=== PATIENT | female | born 1970 | race Caucasian/White ===

== ENCOUNTER → 2017-03-22 | Outpatient (CLI) | payer OTHER ==
[~2017-03-22] MED LIST: CATHETER FLUSH 10 ML SYR IV PRN; CIPR-225 PO; CIPR500T4 PO; CPR500T PO; DOCU-143 PO; EPIN0.3P2 IM; GLIM4TAB PO; HYDR-3812 PO; HYDR-757 PO; IBUP-30 PO; IOHEXOL 350 MG/ML 100 ML (OMNIPAQUE 350) VIAL IV ONE; LEVO500T80 PO; METF-380 PO; METR500T PO; NS 100 ML (IVPB) BAG IV ONE; tylenol #3 PO
--- NOTE | 2017-03-22 15:15 | Diagnostic Imaging Report ---
PROCEDURE: CT chest, abdomen, and pelvis with contrast. TECHNIQUE: Multiple contiguous axial images were obtained through the chest, abdomen, and pelvis after the administration of intravenous contrast. INDICATION: Urethral discharge. 100 mL of Omnipaque [address] CHEST: There is a calcified thyroid nodule measuring 1.1 cm in the lower aspect of the left thyroid lobe. This can be further evaluated with thyroid ultrasound. The lungs demonstrate no significant consolidation, mass or suspicious nodule. From there is no mediastinal mass. No significantly enlarged lymph nodes in the mediastinum, hilar or axilla seen. The heart size is normal. No pericardial or pleural effusion. The osseous structures appear grossly unremarkable. CT ABDOMEN AND PELVIS: The liver, the spleen, the pancreas and adrenal glands appear unremarkable. There is air density bedside the left adrenal gland appears to relate to a small gastric diverticulum. Cholecystectomy clips are seen. The kidneys have symmetric enhancement and contrast excretion. There is no hydronephrosis. The urinary bladder demonstrates luminal air. There is a suggested tract communication between the distal aspect of the sigmoid colon and the dome of the urinary bladder best seen on coronal image #36. There is no contrast filling this communication however. These findings are suggestive of a colovesical fistula. There is still prominent thickening in the sigmoid colon with surrounding fatty stranding which may relate to active mild diverticulitis or could be sequela of prior bouts of diverticulitis. No significant free fluid or abscess is seen at this time however. The uterus, adnexa and vagina appear grossly unremarkable. The abdominal aorta is normal in size. Tiny fat-containing umbilical hernia is seen. However, no paraaortic significantly enlarged lymph node is seen. The osseous structures demonstrate mild degenerative changes in the SI joints with vacuum phenomenon. IMPRESSION: CT CHEST: 1. There is a 1.1 cm inferior left thyroid lobe calcified nodule. Ultrasound evaluation is suggested. CT PELVIS: 1. Findings are suggestive of a colovesicular fistula communicating between the distal sigmoid colon and the dome of the urinary bladder. 2. There is thickening in the sigmoid colon and surrounding mild fatty stranding. This could be sequelae of prior diverticulitis or relating to current mild diverticulitis. Correlate clinically. Dictated by: Dictated on workstation # [id number]
== END ==
LOC: RAD 13:19
PROVIDERS: ATTEND Nurse Practitioner Community Health
DX: E04.1 Nontoxic single thyroid nodule (principal); K63.9 Disease of intestine, unspecified
CPT/HCPCS: 71260; 74177

== ENCOUNTER → 2017-04-02 | Outpatient (CLI) | payer OTHER ==
[~2017-04-02] MED LIST changes: -CATHETER FLUSH 10 ML SYR IV PRN; -IOHEXOL 350 MG/ML 100 ML (OMNIPAQUE 350) VIAL IV ONE; -NS 100 ML (IVPB) BAG IV ONE
--- NOTE | 2017-04-02 16:43 | Diagnostic Imaging Report ---
PROCEDURE: US Thyroid. TECHNIQUE: Multiple real-time grayscale images were obtained of the thyroid in various projections. INDICATION: Thyroid nodule seen on CT. FINDINGS: The right thyroid lobe is 4.5 x 2 x 1.7 cm. The left lobe is 5.1 x 2.3 x 1.9 cm. In the inferior aspect of the left thyroid lobe there are 2 nodules one measuring 1.7 x 1.8 x 1.4 cm with associated hypoechoic rim and hyperechoic internal echotexture. No definite internal vascularity. More inferior to it, there is a 1.5 x 2.4 x 1.5 cm periphery calcified lesion with shadowing in its internal aspect with difficulty assessing its internal characteristics. IMPRESSION: There are 2 nodules in the left thyroid lobe inferiorly, one demonstrates peripheral calcifications and is larger measuring up to 2.4 cm in size. Ultrasound-guided biopsy is suggested. Report faxed to Dr. Mcdonald at 4:45 p.m. 04/02/2017/cb Dictated by: Dictated on workstation # [id number]
== END ==
LOC: RAD 14:23
PROVIDERS: ATTEND Surgery
DX: E04.9 Nontoxic goiter, unspecified (principal)
CPT/HCPCS: 76536

== ENCOUNTER 2017-04-03 05:38 | Outpatient (CLI) | payer OTHER ==
[~2017-04-03] VITALS: Ht 160 cm; Wt 113.4 kg
== END 2017-04-03 13:08 ==
LOC: PREOP 05:38
PROVIDERS: ATTEND Surgery
DX: Z01.818 Encounter for other preprocedural examination (principal); K60.4 Rectal fistula

== ENCOUNTER → 2017-04-05 | Outpatient (CLI) | payer OTHER ==
[~2017-04-05] VITALS: Ht 160 cm; Wt 113.4 kg
[~2017-04-05] MED LIST changes: +LIDOCAINE 1% INJ 20 ML (XYLOCAINE) VIAL INJ ONE
[2017-04-05 13:30] VITALS: BP 137/80
[2017-04-05 13:53] VITALS: BP 134/79
--- NOTE | 2017-04-05 17:22 | Diagnostic Imaging Report ---
EXAMINATION: US-guided core biopsy-thyroid. INDICATION: Left thyroid nodules. Current history and physical and other medical records are reviewed prior to the procedure. CONSENT: Informed consent was obtained from the patient. The risks, benefits, potential complications and alternatives were reviewed and all questions answered to the patient's satisfaction. The patient's vital signs, cardiac rhythm, and pulse oximetry with observed throughout the procedure by qualified nursing personnel. Sedation/medications: none. FINDINGS: Inferior left thyroid nodules one is peripherally calcified. PROCEDURE: After maximal sterile barrier technique preparation and draping, 1% lidocaine was utilized for local anesthesia. With the patient in supine position, and via anterior approach, a 19-gauge guide needle is introduced into the inferior left thyroid nodules under live ultrasound guidance. After confirming adequate positioning with saved ultrasound images, multiple 20 gauge core biopsy specimens were obtained. The patient tolerated the procedure well with no immediate complications. IMPRESSION: Successful US-guided core biopsy of inferior left thyroid nodule. Dictated by: Dictated on workstation # [id number]
== END ==
LOC: RAD 13:16
PROVIDERS: ATTEND Surgery
DX: E04.9 Nontoxic goiter, unspecified (principal)
CPT/HCPCS: 76942

== ENCOUNTER 2017-04-09 11:41 | Day surgery (SDC) | payer OTHER ==
[~2017-04-09] VITALS: Ht 160 cm; Wt 113.4 kg
[~2017-04-09 11:41] MED LIST changes: -LIDOCAINE 1% INJ 20 ML (XYLOCAINE) VIAL INJ ONE
--- NOTE | 2017-04-09 11:59 | Conscious Sedation/ASA ---
Conscious Sedation Pre-Proced Time Reviewed: 11:58 ASA Class: 2 Airway Mallampati Classification: ([place] appropriate class) I. II. III, IV Lungs Heart ASA score ASA 1: a normal healthy patient ASA 2: a patient with a mild systemic disease (mid diabetes, controlled hypertension, obesity ASA 3: a patient with a severe systemic disease that limits activity (angina , COPD, prior Myocardial infarction) ASA 4: a patient with an incapacitating disease that is a constant threat to life (CHF, renal failure) ASA 5: a moribund patient not expected to survive 24 hrs. (ruptured aneurysm) ASA 6: a declared brain patient whose organs are being harvested. For emergent operations, add the letter E after the classification Grade 1 Sedation Plan: Discussed options with patient/fam Note The patient is an appropriate candidate to undergo the planned procedure, sedation, and anesthesia. The patient immediately re-assessed prior to indication. VIRI FERNANDEZ MD Apr 09, 2017 11:59 am
[2017-04-09] MEDS ORDERED: NS IV 500 ML 500 ML IV PRN (12:00)
[2017-04-09 12:02] VITALS: BP 147/87
--- OUTSIDE RECORDS SUMMARY | 2017-04-09 12:23 | XMS REPORT ---
Author Author JARRELL MEI [facility] Address [address] [place] [address] Care Team Providers Care Sales Process Manager Name Role Phone JARRELL MEI Unavailable PROBLEMS Type Condition ICD9-CM Code [id number] Code Onset Dates Condition Status SNOMED Code Assessment Cough R05 Mar, Active 76217519 Problem Hypertension 401.9 Active 97714173 Problem Calculus of gallbladder with biliary obstruction but without cholecystitis 574.21 Active 20268012 Assessment Laryngitis J04.0 Mar, Active 99352926 Problem Routine gynecological examination Z01.419 Active 084066381 Problem Screening breast examination Z12.39 Active 288391774 Problem 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 Active 48128302 Problem 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 Active 334318163 Problem Urinary tract infection symptoms R39.9 Active 84907183 Problem Acute cystitis with hematuria N30.01 Active 44426222 ALLERGIES Substance Reaction Event Type Date Status wasp anaphylaxis Non Drug Allergy Mar, Active SOCIAL HISTORY No smoking Hx information available PLAN OF CARE VITAL SIGNS Height 64 in 2016-04-10 Weight 245.5 lbs 2016-04-10 Heart Rate 84 bpm 2016-04-10 Respiratory Rate 20 2016-04-10 BMI 42.14 kg/m2 2016-04-10 Blood pressure systolic 132 mmHg 2016-04-10 Blood pressure diastolic 80 mmHg 2016-04-10 MEDICATIONS Medication Instructions Dosage Frequency Start Date End Date Duration Status Albuterol Sulfate HFA 108 (90 Base) MCG/ACT Inhalation every 4-6 hours as needed 2 puffs as needed Mar, Active RESULTS Name Result Date Reference Range A1C (IN HOUSE) 2016-04-10 A1C IN HOUSE 8.0 4.3 - 5.6 % Previous A1c 8.4 Lot [id number] Exp date PROCEDURES Procedure Date Ordered Related Diagnosis Body Site GLYCATED HEMOGLOBIN TEST Apr 10, 2016 Office Visit, Est Pt., Level 3 Apr 10, 2016 IMMUNIZATIONS No Known Immunizations
--- OUTSIDE RECORDS SUMMARY | 2017-04-09 12:24 | XMS REPORT ---
Author Author JARRELL MEI [facility] eClinicalWorks Address Unknown Phone Unavailable Care Team Providers Care Private Security Guard Name Role Phone JARRELL MEI CP Unavailable Allergies No Known Allergies Problems Problem Type Condition Code Onset Dates Condition Status Problem Nondependent tobacco use disorder 305.1 Active Problem Generalized hyperhidrosis 780.8 Active Problem Other specified symptom associated with female genital organs 625.8 Active Problem Abdominal pain, right lower quadrant 789.03 Active Problem Ulcer of calf 707.12 Active Problem Obesity, unspecified 278.00 Active Problem Abdominal pain, unspecified site 789.00 Active Problem Screening examination for venereal disease V74.5 Active Problem Acute bronchitis 466.0 Active Problem Unspecified breast screening V76.10 Active Problem Screening for malignant neoplasm of the cervix V76.2 Active Problem Special screening examination, human papillomavirus [HPV] V73.81 Active Problem 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 Active Problem Diabetes 250.00 Active Problem Acute laryngitis, without mention of obstruction 464.00 Active Problem Counseling on substance use and abuse V65.42 Active Problem 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 Active Problem Acute sinusitis, unspecified 461.9 Active Problem Chest pain, unspecified 786.50 Active Problem Intestinal infection due to other organism, NEC 008.8 Active Problem Hypertension 401.9 Active Problem Calculus of gallbladder with biliary obstruction but without cholecystitis 574.21 Active Problem Calculus of gallbladder without mention of cholecystitis or obstruction 574.20 Active Problem Diverticulitis of colon (without mention of hemorrhage) 562.11 Active Problem Other symptoms involving skin and integumentary tissues 782.9 Active Problem Cellulitis and abscess of leg, except foot 682.6 Active Problem Pityriasis versicolor 111.0 Active Problem Candidiasis of vulva and vagina 112.1 Active Problem Papanicolaou smear of cervix with atypical squamous cells of undetermined significance (ASC-US) 795.01 Active Problem Human papilloma virus in conditions classified elsewhere and of unspecified site 079.4 Active Medications No Known Medications Results No Known Results Summary Purpose eClinicalWorks Submission
--- OUTSIDE RECORDS SUMMARY | 2017-04-09 12:24 | XMS REPORT ---
Author Author JARRELL MEI [facility] eClinicalWorks Address Unknown Phone Unavailable Care Team Providers Care Circulation Supervisor Name Role Phone JARRELL MEI CP Unavailable Allergies, Adverse Reactions, Alerts Substance Reaction Event Type wasp anaphylaxis Non Drug Allergy Problems Problem Type Condition Code Onset Dates Condition Status Assessment Pneumonia, organism unspecified, unspecified laterality, unspecified part of lung J18.9 Active Assessment Low back pain M54.5 Active Problem Nondependent tobacco use disorder 305.1 Active [...] and of unspecified site 079.4 Active Medications Medication Code System Code Instructions Start Date End Date Status Dosage metformin NDC 0 500 mg Jun 08, 2014 take 2 tablet with breakfast. Glimepiride [facility] [address]-17 4 MG Orally Once a day in AM with food October 28, 2014 1 Ibuprofen [facility] [address]-29 800 MG Orally Once a day PRN 1 tablet Procedures Procedure Coding System Code Date X-RAY EXAM OF THORACIC SPINE CPT-4 27714 Mar 30, 2015 Office Visit, Est Pt., Level 3 CPT-4 11750 Mar 30, 2015 X-RAY EXAM OF LOWER SPINE CPT-4 05034 Mar 30, 2015 Vital Signs Date/Time: Mar 30, 2015 Temperature 97.5 F Weight 273.2 lbs Height 64 in BMI 46.89 Index Blood Pressure Diastolic 90 mmHg Blood Pressure Systolic 176 mmHg Cardiac Monitoring Heart Rate 84 bpm Results Name Result Date Reference Range Unit Abnormality Flag Xray : Spine, Thoracic 2 views (IN HOUSE) Summary Purpose eClinicalWorks Submission
--- OUTSIDE RECORDS SUMMARY | 2017-04-09 12:24 | XMS REPORT ---
Author Author JARRELL MEI [facility] [place] eClinicalWorks Address Unknown Phone Unavailable Care Team Providers Care Flute Polisher Name Role Phone JARRELL MEI CP Unavailable Allergies, Adverse Reactions, Alerts Substance Reaction Event Type wasp anaphylaxis Non Drug Allergy Problems Problem Type Condition ICD-9 Code Onset Dates Condition Status Assessment Back pain 724.5 Active Assessment Diabetic ulcer of lower extremity 250.80 Active Problem Nondependent tobacco use disorder 305.1 Active Problem Generalized hyperhidrosis 780.8 Active Problem Other specified symptom associated with female genital organs 625.8 Active Problem Pityriasis versicolor 111.0 Active Problem Abdominal pain, right lower quadrant 789.03 Active Problem Candidiasis of vulva and vagina 112.1 Active Problem Ulcer of calf 707.12 Active Problem Obesity, unspecified 278.00 Active Problem Unspecified breast screening V76.10 Active Problem Screening examination for venereal disease V74.5 Active Problem Diabetes 250.00 Active Problem Hypertension 401.9 Active Problem Acute sinusitis, unspecified 461.9 Active Problem Acute bronchitis 466.0 Active Problem Diabetic ulcer of lower extremity 250.80 Active Problem Abdominal pain, unspecified site 789.00 Active Problem Screening for malignant neoplasm of the cervix V76.2 Active Problem Special screening examination, human papillomavirus [HPV] V73.81 Active Problem Chest pain, unspecified 786.50 Active Problem Intestinal infection due to other organism, NEC 008.8 Active Problem Other symptoms involving skin and integumentary tissues 782.9 Active Problem Cellulitis and abscess of leg, except foot 682.6 Active Problem Counseling on substance use and abuse V65.42 Active Problem Acute laryngitis, without mention of obstruction 464.00 Active Problem Papanicolaou smear of cervix with atypical squamous cells of undetermined significance (ASC-US) 795.01 Active Problem Human papilloma virus in conditions classified elsewhere and of unspecified site 079.4 Active Problem Calculus of gallbladder without mention of cholecystitis or obstruction 574.20 Active Problem Diverticulitis of colon (without mention of hemorrhage) 562.11 Active Medications Medication Code System Code Instructions Start Date End Date Status Dosage Bentyl [facility] [address]-74 20 MG Orally Four times a day Dec 29, 2014Feb 1 tablet metformin ND 0 500 mg Jun 08, 2014 take 2 tablet by Oral route 2 times per day with the evening meal Ibuprofen [facility] [address]-01 800 MG Orally Once a day PRN 1 tablet Tizanidine HCl [facility] [address]-33 2 MG Orally every 8 hrs Dec 29, 2014 Jan 08, 2015 1 tablet as needed Silvadene [facility] [address]-98 1 % Externally Once a day Dec 21, 2014Dec 1 application to affected area Glimepiride [facility] [address]-97 4 MG Orally Once a day in AM with food October 28, 2014 1 Naproxen [facility] [address]-09 500 MG Orally every 12 hrs November 04, 2014Dec 1 tablet as needed Cipro [facility] [address]-65 500 MG Orally Twice a day Dec 25, 2014 Jan 04, 2015 1 tablet Procedures Procedure Coding System Code Date ASSAY OF LIPASE CPT-4 83915 Dec 29, 2014 Office Visit, Est Pt., Level 3 CPT-4 85809 Dec 29, 2014 HEPATIC FUNCTION PANEL CPT-4 21377 Dec 29, 2014 VENIPUNCT, ROUTINE* CPT-4 92590 Dec 29, 2014 Vital Signs Date/Time: Dec 29, 2014 Temperature 98.6 F Weight 279 lbs Height 64 in BMI 47.89 Index Blood Pressure Diastolic 74 mmHg Blood Pressure Systolic 138 mmHg Cardiac Monitoring Heart Rate 78 bpm Results Name Result Date Reference Range Unit Abnormality Flag LIPASE Summary Purpose eClinicalWorks Submission
--- OUTSIDE RECORDS SUMMARY | 2017-04-09 12:24 | XMS REPORT ---
Author Author JARRELL MEI [facility] eClinicalWorks Address Unknown Phone Unavailable Care Team Providers Care Dental Service Technician Name Role Phone JARRELL MEI CP Unavailable [...]
--- OUTSIDE RECORDS SUMMARY | 2017-04-09 12:24 | XMS REPORT ---
Author Author JARRELL MEI [facility] eClinicalWorks Address Unknown Phone Unavailable Care Team Providers Care Classroom Instructor Name Role Phone JARRELL MEI CP Unavailable [...] Instructions Start Date End Date Status Dosage Neurontin [facility] [address]-93 100 MG Orally 3 times a day Apr 12, 2015 as directed Results No Known Results Summary Purpose eClinicalWorks Submission
--- OUTSIDE RECORDS SUMMARY | 2017-04-09 12:25 | XMS REPORT ---
Author Author JARRELL MEI Organization [employer]Clinical[employer] Address Unknown Phone Unavailable Care Team Providers Care Manager Pharmacy Name Role Phone JARRELL MEI CP Unavailable [...] bronchitis 466.0 Active Problem 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 Active Problem Abdominal pain, unspecified site [...] (without mention of hemorrhage) 562.11 Active Medications No Known Medications Results No Known Results Summary Purpose eClinicalWorks Submission
--- OUTSIDE RECORDS SUMMARY | 2017-04-09 12:25 | XMS REPORT ---
Author CORDELIA Singh [facility] eClinicalWorks Address Unknown Phone Unavailable Care Team Providers Care Block Setter [place]um Name Role Phone CORDELIA GONSALEZ CP Unavailable Allergies, Adverse Reactions, Alerts Substance Reaction Event Type wasp anaphylaxis Non Drug Allergy Problems Problem Type Condition Code Onset Dates Condition Status Assessment Nausea & vomiting R11.2 Active Assessment Allergic rhinitis J30.9 Active Problem Nondependent tobacco use disorder 305.1 [...] Instructions Start Date End Date Status Dosage MetFORMIN HCl ER [facility] [address]-07 500 MG Orally twice a day August 31, 2015 2 tablet with meals Fluticasone Propionate [facility] [address]-16 50 MCG/ACT Nasally Once a day September 07, 2015 1 spray in each nostril Ibuprofen [facility] [address]-29 800 MG Orally Once a day PRN 1 tablet Zyrtec Allergy [facility] [address]-05 10 MG Orally once a day September 07, 2015 September 17, 2015 1 tablet as needed Glimepiride [facility] [address]-30 4 MG Orally Once a day in AM with food October 28, 2014 1 Procedures Procedure Coding System Code Date Office Visit, Est Pt., Level 3 CPT-4 07682 September 07, 2015 IMMUNOASSAY,INFECTIOUS AGENT CPT-4 57142 September 07, 2015 Vital Signs Date/Time: September 07, 2015 Temperature 97.0 F Weight 273.2 lbs Height 64 in BMI 46.89 Index Blood Pressure Diastolic 88 mmHg Blood Pressure Systolic 142 mmHg Cardiac Monitoring Heart Rate 82 bpm Results Name Result Date Reference Range Unit Abnormality Flag H. PYLORI (IN HOUSE) ----H. PYLORI Negative [id number] ----Control + [id number] ----Lot # [id number] ----Exp date [id number] Summary Purpose eClinicalWorks Submission
--- OUTSIDE RECORDS SUMMARY | 2017-04-09 12:25 | XMS REPORT ---
Author Author JARRELL MEI [facility] eClinicalWorks Address Unknown Phone Unavailable Care Team Providers Care Vice President Of Manufacturing Name Role Phone JARRELL MEI CP Unavailable Allergies No Known Allergies Problems Problem Type Condition ICD-9 Code Onset Dates Condition Status Problem Nondependent [...] 08, 2014 take 2 tablet with breakfast. Results No Known Results Summary Purpose eClinicalWorks Submission
--- OUTSIDE RECORDS SUMMARY | 2017-04-09 12:25 | XMS REPORT ---
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 Active Assessment Urinary tract infection, site not specified N39.0 Active Problem Nondependent tobacco use disorder 305.1 [...] examination for venereal disease V74.5 Active Problem Special screening examination, human papillomavirus [HPV] V73.81 Active Problem Unspecified breast screening V76.10 Active Problem 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 Active Problem Diabetes 250.00 Active Problem Counseling on substance use and abuse V65.42 Active Problem Acute sinusitis, unspecified 461.9 Active Problem 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 Active Problem Acute bronchitis 466.0 Active Problem Intestinal infection due to other organism, NEC 008.8 Active Problem Screening for malignant neoplasm of the cervix V76.2 Active Problem Hypertension 401.9 Active Problem Chest pain, unspecified 786.50 Active Problem Cellulitis and abscess of leg, except foot 682.6 Active Problem Calculus of gallbladder without mention of cholecystitis or obstruction 574.20 Active Problem Acute laryngitis, without mention of obstruction 464.00 Active Problem Other symptoms involving skin and integumentary tissues 782.9 Active Problem Human papilloma virus in conditions classified elsewhere and of unspecified site 079.4 Active Problem Pityriasis versicolor 111.0 Active Problem Diverticulitis of colon (without mention of hemorrhage) 562.11 Active Problem Papanicolaou smear of cervix with atypical squamous cells of undetermined significance (ASC-US) 795.01 Active Medications Medication Code System Code Instructions Start Date End Date Status Dosage Cipro [facility] [address]-70 500 MG Orally Twice a day Feb 28, 2015 Mar 07, 2015 1 tablet Ibuprofen [facility] [address]-75 800 MG Orally Once a day PRN 1 tablet Glimepiride [facility] [address]-02 4 MG Orally Once a day in AM with food October 28, 2014 1 metformin [facility] 0 500 mg Jun 08, 2014 take 2 tablet with breakfast. Procedures Procedure Coding System Code Date Office Visit, Est Pt., Level 2 CPT-4 17166 Mar 03, 2015 Vital Signs Date/Time: Mar 03, 2015 Temperature 97.3 F Weight 279 lbs Height 64 in BMI 47.89 Index Blood Pressure Diastolic 82 mmHg Blood Pressure Systolic 142 mmHg Cardiac Monitoring Heart Rate 80 bpm Results No Known Results Summary Purpose eClinicalWorks Submission
--- OUTSIDE RECORDS SUMMARY | 2017-04-09 12:25 | XMS REPORT ---
Author Author CORDELIA GONSALEZ [facility] eClinicalWorks Address Unknown Phone Unavailable Care Team Providers Care Director Of Veterans Affairs Name Role Phone CORDELIA GONSALEZ CP Unavailable Allergies, Adverse Reactions, Alerts Substance Reaction Event Type wasp anaphylaxis Non Drug Allergy Problems Problem Type Condition ICD-9 Code Onset Dates Condition Status Assessment Lymphadenopathy of right cervical region 785.6 Active Assessment Sinusitis 473.9 Active Problem Nondependent tobacco use disorder 305.1 [...] Start Date End Date Status Dosage metformin [facility] 0 500 mg Jun 08, 2014 take 2 tablet with breakfast. Silvadene [facility] [address]-07 1 % Externally Once a day Dec 21, 2014Dec 1 application to affected area Ibuprofen [facility] [address]-75 800 MG Orally Once a day PRN 1 tablet Augmentin [facility] [address]-90 875-125 MG Orally every 12 hrs Jan 14, 2015 Jan 24, 2015 1 tablet Glimepiride [facility] [address]-94 4 MG Orally Once a day in AM with food October 28, 2014 1 Procedures Procedure Coding System Code Date Office Visit, Est Pt., Level 3 CPT-4 69807 Jan 14, 2015 Vital Signs Date/Time: Jan 14, 2015 Cardiac Monitoring Heart Rate 76 bpm Temperature 98.1 F Height 64 in Blood Pressure Diastolic 78 mmHg Blood Pressure Systolic 142 mmHg Results No Known Results Summary Purpose eClinicalWorks Submission
--- OUTSIDE RECORDS SUMMARY | 2017-04-09 12:26 | XMS REPORT ---
Author Author JARRELL MEI [facility] eClinicalWorks Address Unknown Phone Unavailable Care Team Providers Care Shift Mgr Name Role Phone JARRELL MEI CP Unavailable Allergies, Adverse Reactions, Alerts Substance Reaction Event Type wasp anaphylaxis Non Drug Allergy Problems Problem Type Condition Code Onset Dates Condition Status Assessment Diverticulitis of intestine without perforation or abscess without bleeding, unspecified part of intestinal tract K57.92 Active Problem Nondependent tobacco use disorder 305.1 [...] Instructions Start Date End Date Status Dosage Ciprofloxacin HCl [facility] [address]-56 500 MG Orally Twice a day 1 tablet Fluticasone Propionate [facility] [address]-01 50 MCG/ACT Nasally Once a day September 07, 2015 1 spray in each nostril Ibuprofen [facility] [address]-21 800 MG Orally Once a day PRN 1 tablet Metronidazole [facility] [address]-05 500 MG Orally every 8 hrs December 07, 2015 1 tablet Procedures Procedure Coding System Code Date Office Visit, Est Pt., Level 2 CPT-4 44606 November 30, 2015 Vital Signs Date/Time: November 30, 2015 Cardiac Monitoring Heart Rate 80 bpm Weight 260 lbs Height 64 in BMI 44.62 Index Blood Pressure Diastolic 94 mmHg Blood Pressure Systolic 150 mmHg Results No Known Results Summary Purpose eClinicalWorks Submission
--- OUTSIDE RECORDS SUMMARY | 2017-04-09 12:27 | XMS REPORT | Continuity of Care Document ---
Author Author [facility] Address Unknown Phone Unavailable Allergies Active Description Code Type Severity Reaction Onset Reported/Identified Relationship to Patient Clinical Status Yes Wasp Stings OA 06/30/2009 Yes Wasp Stings OA N/A N/A 06/30/2009 Yes oranges oranges Unknown N/A 06/17/2014 Yes wasps wasps Unknown N/A 06/17/2014 Medications Problems Date Dx Coded Attending Type Code Diagnosis Diagnosed By 12/23/2007 558.9 Gastroenteritis Noninfectious 12/23/2007 558.9 Gastroenteritis Noninfectious 12/23/2007 MERCEDES MONTANA APRN A 558.9 Gastroenteritis Noninfectious 12/23/2007 558.9 Gastroenteritis Noninfectious 12/23/2007 CHUNG AUGUSTE MD 558.9 Gastroenteritis Noninfectious 12/23/2007 MERCEDES MONTANA APRN A 558.9 Gastroenteritis Noninfectious 12/23/2007 JARRELL MEI APRN S 558.9 Gastroenteritis Noninfectious 12/23/2007 JARRELL MEI APRN S 558.9 Gastroenteritis Noninfectious 12/23/2007 JARRELL MEI APRN S 558.9 Gastroenteritis Noninfectious 01/21/2008 465.9 Upper Respiratory Infection 01/21/2008 465.9 Upper Respiratory Infection 01/21/2008 MERCEDES MONTANA APRN A 465.9 Upper Respiratory Infection 01/21/2008 465.9 Upper Respiratory Infection 01/21/2008 CHUNG AUGUSTE MD 465.9 Upper Respiratory Infection 01/21/2008 MERCEDES MONTANA APRN A 465.9 Upper Respiratory Infection 01/21/2008 JARRELL MEI APRN S 465.9 Upper Respiratory Infection 01/21/2008 JARRELL MEI APRN S 465.9 Upper Respiratory Infection 01/21/2008 JARRELL MEI APRN S 465.9 Upper Respiratory Infection 04/29/2008 296.90 Mood Disorder 04/29/2008 296.90 Mood Disorder 04/29/2008 RANJAN MONTANA APRNIDI A 296.90 Mood Disorder 04/29/2008 296.90 Mood Disorder 04/29/2008 CHUNG AUGUSTE MD 296.90 Mood Disorder 04/29/2008 RANJAN MONTANA APRNIDI A 296.90 Mood Disorder 04/29/2008 ELLEN MEI APRNNDA S 296.90 Mood Disorder 04/29/2008 ELLEN MEI APRNNDA S 296.90 Mood Disorder 04/29/2008 HAMIDA ARREDONDO JARRELL S 296.90 Mood Disorder 05/01/2008 250.00 DIABETES II CONTROLLED 05/01/2008 250.00 DIABETES MELLITUS 05/01/2008 RANJAN MONTANA APRNIDI A 250.00 DIABETES MELLITUS 05/01/2008 250.00 DIABETES MELLITUS 05/01/2008 CHUNG AUGUSTE MD 250.00 DIABETES MELLITUS 05/01/2008 MERCEDES MONTANA APRN A 250.00 DIABETES MELLITUS 05/01/2008 ELLEN MIE APRNNDA S 250.00 DIABETES MELLITUS 05/01/2008 ELLEN MEI APRNNDA S 250.00 DIABETES MELLITUS 05/01/2008 AHMIDA ARREDONDO JARRELL S 250.00 DIABETES MELLITUS 06/30/2009 724.2 Lower Back Pain 06/30/2009 729.5 Pain In Limb 06/30/2009 724.2 Lower Back Pain 06/30/2009 729.5 Pain In Limb 06/30/2009 RANJAN [place]TANA APRNIDI A 724.2 Lower Back Pain 06/30/2009 RANJAN MONTANA APRNIDI A 729.5 Pain In Limb 06/30/2009 724.2 Lower Back Pain 06/30/2009 729.5 Pain In Limb 06/30/2009 CHUNG AUGUSTE MD 724.2 Lower Back Pain 06/30/2009 CHUNG AUGUSTE MD 729.5 Pain In Limb 06/30/2009 RANJAN MONTANA APRNIDI A 724.2 Lower Back Pain 06/30/2009 RANJAN [place] APRNIDI A 729.5 Pain In Limb 06/30/2009 SUJATHA MEI APRNA S 724.2 Lower Back Pain 06/30/2009 HAMIDA MASK DESIGNER, JARRELL S 729.5 Pain In Limb 06/30/2009 HAMIDA MASK DESIGNER, JARRELL S 724.2 Lower Back Pain 06/30/2009 HAMIDA MASK DESIGNER, JARRELL S 729.5 Pain In Limb 06/30/2009 HAMIDA MASK DESIGNER, JARRELL S 724.2 Lower Back Pain 06/30/2009 HAMIDA MASK DESIGNER, JARRELL S 729.5 Pain In Limb 07/14/2009 466.0 Acute Bronchitis 07/14/2009 796.2 Elevated Blood Pressure Reading Without Diagnosis Of Hypertension 07/14/2009 466.0 Acute Bronchitis 07/14/2009 796.2 Elevated Blood Pressure Reading Without Diagnosis Of Hypertension 07/14/2009 RANJAN MONTANA APRNIDI A 466.0 Acute Bronchitis 07/14/2009 RANJAN MONTANA APRNIDI A 796.2 Elevated Blood Pressure Reading Without Diagnosis Of Hypertension 07/14/2009 466.0 Acute Bronchitis 07/14/2009 796.2 Elevated Blood Pressure Reading Without Diagnosis Of Hypertension 07/14/2009 CHUNG AUGUSTE MD 466.0 Acute Bronchitis 07/14/2009 CHUNG AUGUSTE MD 796.2 Elevated Blood Pressure Reading Without Diagnosis Of Hypertension 07/14/2009 RANJAN MONTANA APRNIDI A 466.0 Acute Bronchitis 07/14/2009 RANJAN MONTANA APRNIDI A 796.2 Elevated Blood Pressure Reading Without Diagnosis Of Hypertension 07/14/2009 HAMIDA ARREDONDO, JARRELL S 466.0 Acute Bronchitis 07/14/2009 HAMIDA ARREDONDO, JARRELL S 796.2 Elevated Blood Pressure Reading Without Diagnosis Of Hypertension 07/14/2009 HAMIDA ARREDONDO, JARRELL S 466.0 Acute Bronchitis 07/14/2009 HAMIDA ARREDONDO, JARRELL S 796.2 Elevated Blood Pressure Reading Without Diagnosis Of Hypertension 07/14/2009 HAMIDA ARREDONDO, JARRELL S 466.0 Acute Bronchitis 07/14/2009 HAMIDA ARREDONDO, JARRELL S 796.2 Elevated Blood Pressure Reading Without Diagnosis Of Hypertension 08/31/2009 724.3 Sciatica 08/31/2009 724.3 Sciatica 08/31/2009 MERCEDES MONTANA APRN A 724.3 Sciatica 08/31/2009 724.3 Sciatica 08/31/2009 CHUNG AUGUSTE MD 724.3 Sciatica 08/31/2009 NAN KELLERN, MERCEDES A 724.3 Sciatica 08/31/2009 HAIMDA MASK DESIGNER, JARRELL S 724.3 Sciatica 08/31/2009 HAMIDA MASK DESIGNER, JARRELL S 724.3 Sciatica 08/31/2009 HAMIDA MASK DESIGNER, JARRELL S 724.3 Sciatica 09/03/2009 703.8 Onychocryptosis 09/03/2009 703.8 Onychocryptosis 09/03/2009 NAN MASK DESIGNER, MERCEDES A 703.8 Onychocryptosis 09/03/2009 703.8 Onychocryptosis 09/03/2009 CHUNG AUGUSTE MD 703.8 Onychocryptosis 09/03/2009 NAN ARREDONDO, MERCEDES A 703.8 Onychocryptosis 09/03/2009 HAMIDA KELLERN, JARRELL S 703.8 Onychocryptosis 09/03/2009 HAMIDA KELLERN, JARRELL S 703.8 Onychocryptosis 09/03/2009 HAMIDA KELLERN, JARRELL S 703.8 Onychocryptosis 12/02/2009 995.0 Certain Adverse Effects Not Elsewhere Classified, Other Anaphylactic Shock 12/02/2009 995.0 Certain Adverse Effects Not Elsewhere Classified, Other Anaphylactic Shock 12/02/2009 RANJAN MONTANA APRNIDI A 995.0 Certain Adverse Effects Not Elsewhere Classified, Other Anaphylactic Shock 12/02/2009 995.0 Certain Adverse Effects Not Elsewhere Classified, Other Anaphylactic Shock 12/02/2009 CHUNG AUGUSTE MD 995.0 Certain Adverse Effects Not Elsewhere Classified, Other Anaphylactic Shock 12/02/2009 NAN ARREDONDO, MERCEDES A 995.0 Certain Adverse Effects Not Elsewhere Classified, Other Anaphylactic Shock 12/02/2009 HAMIDA KELLERN, JARRELL S 995.0 Certain Adverse Effects Not Elsewhere Classified, Other Anaphylactic Shock 12/02/2009 HAMIDA KELLERN, JARRELL S 995.0 Certain Adverse Effects Not Elsewhere Classified, Other Anaphylactic Shock 12/02/2009 JARRELL MEI APRN S 995.0 Certain Adverse Effects Not Elsewhere Classified, Other Anaphylactic Shock 01/27/2010 782.1 Skin: A Rash [as Sx] 01/27/2010 782.1 Skin: A Rash [as Sx] 01/27/2010 MERCEDES MONTANA APRN A 782.1 Skin: A Rash [as Sx] 01/27/2010 782.1 Skin: A Rash [as Sx] 01/27/2010 CHUNG UAGUSTE MD 782.1 Skin: A Rash [as Sx] 01/27/2010 MERCEDES MONTANA APRN A 782.1 Skin: A Rash [as Sx] 01/27/2010 JARRELL MEI APRN S 782.1 Skin: A Rash [as Sx] 01/27/2010 JARRELL MEI APRN S 782.1 Skin: A Rash [as Sx] 01/27/2010 JARRELL MEI APRN S 782.1 Skin: A Rash [as Sx] 05/11/2010 372.30 Conjunctivitis Unspecified 05/11/2010 372.30 Conjunctivitis Unspecified 05/11/2010 MERCEDES MONTANA APRN A 372.30 Conjunctivitis Unspecified 05/11/2010 372.30 Conjunctivitis Unspecified 05/11/2010 CHUNG AUGUSTE MD 372.30 Conjunctivitis Unspecified 05/11/2010 MERCEDES MONTANA APRN A 372.30 Conjunctivitis Unspecified 05/11/2010 JARRELL MEI APRN S 372.30 Conjunctivitis Unspecified 05/11/2010 JARRELL MEI APRN S 372.30 Conjunctivitis Unspecified 05/11/2010 JARRELL MEI APRN S 372.30 Conjunctivitis Unspecified 07/05/2010 Ot V67.9 07/07/2010 562.11 Diverticulitis Of Colon (without Hemorrhage) 07/07/2010 719.41 Pain In Joint Involving Shoulder Region 07/07/2010 726.73 Calcaneal Spur 07/07/2010 562.11 Diverticulitis Of Colon (without Hemorrhage) 07/07/2010 719.41 Pain In Joint Involving Shoulder Region 07/07/2010 726.73 Calcaneal Spur 07/07/2010 MERCEDES MONTANA APRN A 562.11 Diverticulitis Of Colon (without Hemorrhage) 07/07/2010 MERCEDES MONTANA APRN A 719.41 Pain In Joint Involving Shoulder Region 07/07/2010 MERCEDES MONTANA APRN A 726.73 Calcaneal Spur 07/07/2010 562.11 Diverticulitis Of Colon (without Hemorrhage) 07/07/2010 719.41 Pain In Joint Involving Shoulder Region 07/07/2010 726.73 Calcaneal Spur 07/07/2010 CHUNG AUGUSTE MD 562.11 Diverticulitis Of Colon (without Hemorrhage ) 07/07/2010 CHUNG AUGUSTE MD 719.41 Pain In Joint Involving Shoulder Region 07/07/2010 CHUNG AUGUSTE MD 726.73 Calcaneal Spur 07/07/2010 MERCEDES MONTANA APRN A 562.11 Diverticulitis Of Colon (without Hemorrhage) 07/07/2010 MERCEDES MONTANA APRN A 719.41 Pain In Joint Involving Shoulder Region 07/07/2010 MERCEDES MONTANA APRN A 726.73 Calcaneal Spur 07/07/2010 HAMIDA ARREDONDO JARRELL S 562.11 Diverticulitis Of Colon (without Hemorrhage) 07/07/2010 HAMIDA ARREDONDO JARRELL S 719.41 Pain In Joint Involving Shoulder Region 07/07/2010 HAMIDA KELLERN JARRELL S 726.73 Calcaneal Spur 07/07/2010 HAMIDA ARREDONDO JARRELL S 562.11 Diverticulitis Of Colon (without Hemorrhage) 07/07/2010 HAMIDA MASK DESIGNER, JARRELL S 719.41 Pain In Joint Involving Shoulder Region 07/07/2010 HAMIDA MASK DESIGNER, JARRELL S 726.73 Calcaneal Spur 07/07/2010 HAMIDA MASK DESIGNER JARRELL S 562.11 Diverticulitis Of Colon (without Hemorrhage) 07/07/2010 HAMIDA MASK DESIGNER, JARRELL S 719.41 Pain In Joint Involving Shoulder Region 07/07/2010 HAMIDA KELLERN, JARRELL S 726.73 Calcaneal Spur 09/16/2010 729.4 Plantar Fasciitis 09/16/2010 729.4 Plantar Fasciitis 09/16/2010 MERCEDES MONTANA APRN A 729.4 Plantar Fasciitis 09/16/2010 729.4 Plantar Fasciitis 09/16/2010 CHUNG AUGUSTE MD 729.4 Plantar Fasciitis 09/16/2010 MERCEDES MONTANA APRN A 729.4 Plantar Fasciitis 09/16/2010 SUJATHA MEI APRNA S 729.4 Plantar Fasciitis 09/16/2010 ELLEN MEI APRNNDA S 729.4 Plantar Fasciitis 09/16/2010 ELLEN MEI APRNNDA S 729.4 Plantar Fasciitis 01/17/2011 595.0 Acute Cystitis 01/17/2011 595.0 Acute Cystitis 01/17/2011 MERCEDES MONTANA APRN A 595.0 Acute Cystitis 01/17/2011 595.0 Acute Cystitis 01/17/2011 CHUNG AUGUSTE MD 595.0 Acute Cystitis 01/17/2011 MERCEDES MONTANA APRN A 595.0 Acute Cystitis 01/17/2011 SUJATHA MEI APRNA S 595.0 Acute Cystitis 01/17/2011 SUJATHA MEI APRNA S 595.0 Acute Cystitis 01/17/2011 SUJATHA MEI APRNA S 595.0 Acute Cystitis 02/06/2011 278.02 OVERWEIGHT 02/06/2011 625.6 STRESS INCONTINENCE FEMALE 02/06/2011 278.02 OVERWEIGHT 02/06/2011 625.6 STRESS INCONTINENCE FEMALE 02/06/2011 MERCEDES MONTANA APRN A 278.02 OVERWEIGHT 02/06/2011 MERCEDES MONTANA APRN A 625.6 STRESS INCONTINENCE FEMALE 02/06/2011 278.02 OVERWEIGHT 02/06/2011 625.6 STRESS INCONTINENCE FEMALE 02/06/2011 CHUNG AUGUSTE MD 278.02 OVERWEIGHT 02/06/2011 CHUNG AUGUSTE MD 625.6 STRESS INCONTINENCE FEMALE 02/06/2011 MERCEDES MONTANA APRN A 278.02 OVERWEIGHT 02/06/2011 MERCEDES MONTANA APRN A 625.6 STRESS INCONTINENCE FEMALE 02/06/2011 JARRELL MEI APRN S 278.02 OVERWEIGHT 02/06/2011 HAMIDA MASK DESIGNER, JARRELL S 625.6 STRESS INCONTINENCE FEMALE 02/06/2011 HAMIDA ARREDONDO, JARRELL S 278.02 OVERWEIGHT 02/06/2011 HAMIDA ARREDONDO, JARRELL S 625.6 STRESS INCONTINENCE FEMALE 02/06/2011 HAMIDA ARRDEONDO, JARRELL S 278.02 OVERWEIGHT 02/06/2011 HAMIDA ARREDONDO, JARRELL S 625.6 STRESS INCONTINENCE FEMALE 2011 723.1 CERVICALGIA 2011 723.1 CERVICALGIA 2011 MERCEDES MONTANA APRN A 723.1 CERVICALGIA 2011 723.1 CERVICALGIA 2011 CHUNG AUGUSTE MD 723.1 CERVICALGIA 2011 MERCEDES MONTANA APRN A 723.1 CERVICALGIA 2011 ELLEN MEI APRNNDA S 723.1 CERVICALGIA 2011 ELLEN MEI APRNNDA S 723.1 CERVICALGIA 2011 HAMIDA ARREDONDO JARRELL S 723.1 CERVICALGIA 08/22/2011 008.8 INTESTINAL INFECTION DUE TO OTHER ORGANISM NOT ELSEWHERE CLASSIFIED 08/22/2011 786.50 CHEST PAIN 08/22/2011 008.8 INTESTINAL INFECTION DUE TO OTHER ORGANISM NOT ELSEWHERE CLASSIFIED 08/22/2011 786.50 CHEST PAIN 08/22/2011 MERCEDES MONTANA APRN A 008.8 INTESTINAL INFECTION DUE TO OTHER ORGANISM NOT ELSEWHERE CLASSIFIED 08/22/2011 MERCEDES MONTANA APRN A 786.50 CHEST PAIN 08/22/2011 008.8 INTESTINAL INFECTION DUE TO OTHER ORGANISM NOT ELSEWHERE CLASSIFIED 08/22/2011 786.50 CHEST PAIN 08/22/2011 CHUNG AUGUSTE MD 008.8 INTESTINAL INFECTION DUE TO OTHER ORGANISM NOT ELSEWHERE CLASSIFIED 08/22/2011 CHUNG AUGUSTE MD 786.50 CHEST PAIN 08/22/2011 MERCEDES MONTANA APRN 008.8 INTESTINAL INFECTION DUE TO OTHER ORGANISM NOT ELSEWHERE CLASSIFIED 08/22/2011 MERCEDES MONTANA APRN A 786.50 CHEST PAIN 08/22/2011 JARRELL MEI APRN S 008.8 INTESTINAL INFECTION DUE TO OTHER ORGANISM NOT ELSEWHERE CLASSIFIED 08/22/2011 HAMIDA MASK DESIGNER, JARRELL S 786.50 CHEST PAIN 08/22/2011 HAMIDA ARREDONDO, JARRELL S 008.8 INTESTINAL INFECTION DUE TO OTHER ORGANISM NOT ELSEWHERE CLASSIFIED 08/22/2011 HAMIDA ARREDONDO, JARRELL S 786.50 CHEST PAIN 08/22/2011 HAMIDA ARREDONDO, JARRELL S 008.8 INTESTINAL INFECTION DUE TO OTHER ORGANISM NOT ELSEWHERE CLASSIFIED 08/22/2011 HAMIDA ARREDONDO, JARRELL S 786.50 CHEST PAIN 10/12/2011 789.03 ABDOMINAL PAIN RIGHT LOWER QUADRANT 10/12/2011 789.03 ABDOMINAL PAIN RIGHT LOWER QUADRANT 10/12/2011 MERCEDES MONTANA APRN A 789.03 ABDOMINAL PAIN RIGHT LOWER QUADRANT 10/12/2011 789.03 ABDOMINAL PAIN RIGHT LOWER QUADRANT 10/12/2011 CHUNG AUGUSTE MD 789.03 ABDOMINAL PAIN RIGHT LOWER QUADRANT 10/12/2011 MERCEDES MONTANA APRN A 789.03 ABDOMINAL PAIN RIGHT LOWER QUADRANT 10/12/2011 SUJATHA MEI APRNA S 789.03 ABDOMINAL PAIN RIGHT LOWER QUADRANT 10/12/2011 ELLEN MEI APRNNDA S 789.03 ABDOMINAL PAIN RIGHT LOWER QUADRANT 10/12/2011 HAMIDA ARREDONDO JARRELL S 789.03 ABDOMINAL PAIN RIGHT LOWER QUADRANT 10/13/2011 Ot 562.11 DIVERTICULITIS COLON (W/O MENT OF HEMORR 10/13/2011 Ot 789.03 ABDOMINAL PAIN, RIGHT LOWER QUADRANT 11/02/2011 562.11 DIVERTICULITIS OF COLON (WITHOUT HEMORRHAGE) 11/02/2011 562.11 DIVERTICULITIS OF COLON (WITHOUT HEMORRHAGE) 11/02/2011 MERCEDES MONTANA APRN A 562.11 DIVERTICULITIS OF COLON (WITHOUT HEMORRHAGE) 11/02/2011 562.11 DIVERTICULITIS OF COLON (WITHOUT HEMORRHAGE) 11/02/2011 CHUNG AUGUSTE MD 562.11 DIVERTICULITIS OF COLON (WITHOUT HEMORRHAGE ) 11/02/2011 MERCEDES MONTANA APRN A 562.11 DIVERTICULITIS OF COLON (WITHOUT HEMORRHAGE) 11/02/2011 SUJATHA MEI APRNA S 562.11 DIVERTICULITIS OF COLON (WITHOUT HEMORRHAGE) 11/02/2011 SUJATHA MEI APRNA S 562.11 DIVERTICULITIS OF COLON (WITHOUT HEMORRHAGE) 11/02/2011 JARRELL MEI APRN S 562.11 DIVERTICULITIS OF COLON (WITHOUT HEMORRHAGE) 12/18/2011 305.1 NONDEPENDENT TOBACCO USE DISORDER 12/18/2011 780.8 HOT FLASHES 12/18/2011 305.1 NONDEPENDENT TOBACCO USE DISORDER 12/18/2011 780.8 HOT FLASHES 12/18/2011 MERCEDES MONTANA APRN A 305.1 NONDEPENDENT TOBACCO USE DISORDER 12/18/2011 MERCEDES MONTANA APRN A 780.8 HOT FLASHES 12/18/2011 305.1 NONDEPENDENT TOBACCO USE DISORDER 12/18/2011 780.8 HOT FLASHES 12/18/2011 CHUNG AUGUSTE MD 305.1 NONDEPENDENT TOBACCO USE DISORDER 12/18/2011 CHUNG AUGUSTE MD 780.8 HOT FLASHES 12/18/2011 MERCEDES MONTANA APRN A 305.1 NONDEPENDENT TOBACCO USE DISORDER 12/18/2011 MERCEDES MONTANA APRN A 780.8 HOT FLASHES 12/18/2011 JARRELL MEI APRN S 305.1 NONDEPENDENT TOBACCO USE DISORDER 12/18/2011 JARRELL MEI APRN S 780.8 HOT FLASHES 12/18/2011 JARRELL MEI APRN S 305.1 NONDEPENDENT TOBACCO USE DISORDER 12/18/2011 JARRELL MEI APRN S 780.8 HOT FLASHES 12/18/2011 JARRELL MEI APRN S 305.1 NONDEPENDENT TOBACCO USE DISORDER 12/18/2011 JARRELL MEI APRN S 780.8 HOT FLASHES 08/05/2012 461.9 SINUSITIS ACUTE 08/05/2012 464.00 LARYNGITIS 08/05/2012 466.0 ACUTE BRONCHITIS 08/05/2012 782.9 dry skin 08/05/2012 V65.42 Patient Education - Alcohol 08/05/2012 MERCEDES MONTANA APRN A 461.9 SINUSITIS ACUTE 08/05/2012 MERCEDES MONTANA APRN A 464.00 LARYNGITIS 08/05/2012 MERCEDES MONTANA APRN A 466.0 ACUTE BRONCHITIS 08/05/2012 MERCEDES MONTANA APRN A 782.9 dry skin 08/05/2012 NAN MASK DESIGNER, MERCEDES A V65.42 Patient Education - Alcohol 08/05/2012 461.9 SINUSITIS ACUTE 08/05/2012 464.00 LARYNGITIS 08/05/2012 466.0 ACUTE BRONCHITIS 08/05/2012 782.9 dry skin 08/05/2012 V65.42 Patient Education - Alcohol 08/05/2012 MOLINA HAYES, CHUNG 461.9 SINUSITIS ACUTE 08/05/2012 MOLINA HAYES, CHUNG 464.00 LARYNGITIS 08/05/2012 MOLINA HAYES, CHUNG 466.0 ACUTE BRONCHITIS 08/05/2012 MOLINA HAYES, CHUNG 782.9 dry skin 08/05/2012 MOLINA HAYES, CHUNG V65.42 Patient Education - Alcohol 08/05/2012 NAN MASK DESIGNER, MERCEDES A 461.9 SINUSITIS ACUTE 08/05/2012 NAN MASK DESIGNER, MERCEDES A 464.00 LARYNGITIS 08/05/2012 NAN MASK DESIGNER, MERCEDES A 466.0 ACUTE BRONCHITIS 08/05/2012 NAN MASK DESIGNER, MERCEDES A 782.9 dry skin 08/05/2012 NAN MASK DESIGNER, MERCEDES A V65.42 Patient Education - Alcohol 08/05/2012 HAMIDA MASK DESIGNER, JARRELL S 461.9 SINUSITIS ACUTE 08/05/2012 HAMIDA MASK DESIGNER, JARRELL S 464.00 LARYNGITIS 08/05/2012 HAMIDA MASK DESIGNER, JARRELL S 466.0 ACUTE BRONCHITIS 08/05/2012 HAMIDA MASK DESIGNER, JARRELL S 782.9 dry skin 08/05/2012 HAMIDA MASK DESIGNER, JARRELL S V65.42 Patient Education - Alcohol 08/05/2012 HAMIDA MASK DESIGNER, JARRELL S 461.9 SINUSITIS ACUTE 08/05/2012 HAMIDA MASK DESIGNER, JARRELL S 464.00 LARYNGITIS 08/05/2012 HAMIDA MASK DESIGNER, JARRELL S 466.0 ACUTE BRONCHITIS 08/05/2012 HAMIDA MASK DESIGNER, JARRELL S 782.9 dry skin 08/05/2012 HAMIDA MASK DESIGNER, JARRELL S V65.42 Patient Education - Alcohol 08/05/2012 HAMIDA MASK DESIGNER, JARRELL S 461.9 SINUSITIS ACUTE 08/05/2012 ELLEN MEI APRNNDA S 464.00 LARYNGITIS 08/05/2012 HAMIDA KELLERLalo JARRELL S 466.0 ACUTE BRONCHITIS 08/05/2012 HAMIDA KELLERLalo JARRELL S 782.9 dry skin 08/05/2012 HAMIDA MASK DESIGNERELLENJARRELL S V65.42 Patient Education - Alcohol 08/23/2012 MERCEDES MONTANA APRN 111.0 TINEA VERSICOLOR 08/23/2012 MERCEDES MONTANA APRN A 112.1 CANDIDIASIS VAGINAL 08/23/2012 MERCEDES MONTANA APRN A 278.00 OBESITY 08/23/2012 MERCEDES MONTANA APRN V73.81 HPV SCREENING 08/23/2012 MERCEDES MONTANA APRN V74.5 STD SCREEN 08/23/2012 MERCEDES MONTANA APRN V76.10 BREAST CANCER SCREENING 08/23/2012 MERCEDES MONTANA APRN V76.2 CERVICAL CANCER SCREENING (PAP SMEAR) 08/23/2012 111.0 TINEA VERSICOLOR 08/23/2012 112.1 CANDIDIASIS VAGINAL 08/23/2012 278.00 OBESITY 08/23/2012 V73.81 HPV SCREENING 08/23/2012 V74.5 STD SCREEN 08/23/2012 V76.10 BREAST CANCER SCREENING 08/23/2012 V76.2 CERVICAL CANCER SCREENING (PAP SMEAR) 08/23/2012 CHUNG AUGUSTE MD 111.0 TINEA VERSICOLOR 08/23/2012 CHUNG AUGUSTE MD 112.1 CANDIDIASIS VAGINAL 08/23/2012 CHUNG AUGUSTE MD 278.00 OBESITY 08/23/2012 CHUNG AUGUSTE MD V73.81 HPV SCREENING 08/23/2012 CHUNG AUGUSTE MD V74.5 STD SCREEN 08/23/2012 CHUNG AUGUSTE MD V76.10 BREAST CANCER SCREENING 08/23/2012 CHUNG AUGUSTE MD V76.2 CERVICAL CANCER SCREENING (PAP SMEAR) 08/23/2012 MERCEDES MONTANA APRN A 111.0 TINEA VERSICOLOR 08/23/2012 MERCEDES MONTANA APRN A 112.1 CANDIDIASIS VAGINAL 08/23/2012 MERCEDES MONTANA APRN A 278.00 OBESITY 08/23/2012 NAN MASK DESIGNER, MERCEDES A V73.81 HPV SCREENING 08/23/2012 NAN MASK DESIGNER, MERCEDES A V74.5 STD SCREEN 08/23/2012 NAN MASK DESIGNER, MERCEDES A V76.10 BREAST CANCER SCREENING 08/23/2012 NAN MASK DESIGNER, MERCEDES A V76.2 CERVICAL CANCER SCREENING (PAP SMEAR) 08/23/2012 HAMIDA MASK DESIGNER, JARRELL S 111.0 TINEA VERSICOLOR 08/23/2012 HAMIDA MASK DESIGNER, JARRELL S 112.1 CANDIDIASIS VAGINAL 08/23/2012 HAMIDA MASK DESIGNER, JARRELL S 278.00 OBESITY 08/23/2012 HAMIDA MASK DESIGNER, JARRELL S V73.81 HPV SCREENING 08/23/2012 HAMIDA MASK DESIGNER, JARRELL S V74.5 STD SCREEN 08/23/2012 HAMIDA MASK DESIGNER, JARRELL S V76.10 BREAST CANCER SCREENING 08/23/2012 HAMIDA ARREDONDO, JARRELL S V76.2 CERVICAL CANCER SCREENING (PAP SMEAR) 08/23/2012 HAMIDA MASK DESIGNER, JARRELL S 111.0 TINEA VERSICOLOR 08/23/2012 HAMIDA ARREDONDO JARRELL S 112.1 CANDIDIASIS VAGINAL 08/23/2012 HAMIDA ARREDONDO, JARRELL S 278.00 OBESITY 08/23/2012 HAMIDA KELLERN, JARRELL S V73.81 HPV SCREENING 08/23/2012 HAMIDA MASK DESIGNER, JARRELL S V74.5 STD SCREEN 08/23/2012 HAMIDA ARREDONDO, JARRELL S V76.10 BREAST CANCER SCREENING 08/23/2012 HAMIDA MASK DESIGNER, JARRELL S V76.2 CERVICAL CANCER SCREENING (PAP SMEAR) 08/23/2012 HAMIDA MASK DESIGNER, JARRELL S 111.0 TINEA VERSICOLOR 08/23/2012 HAMIDA MASK DESIGNER, JARRELL S 112.1 CANDIDIASIS VAGINAL 08/23/2012 HAMIDA MASK DESIGNER, JARRELL S 278.00 OBESITY 08/23/2012 HAMIDA MASK DESIGNER, JARRELL S V73.81 HPV SCREENING 08/23/2012 HAMIDA MASK DESIGNER, JARRELL S V74.5 STD SCREEN 08/23/2012 ELLEN MEI APRNNDA S V76.10 BREAST CANCER SCREENING 08/23/2012 HAMIDA ARREDONDO JARRELL S V76.2 CERVICAL CANCER SCREENING (PAP SMEAR) 10/30/2012 079.4 HPV 10/30/2012 795.01 ABNORMAL PAP - ASCUS 10/30/2012 CHUNG AUGUSTE MD 079.4 HPV 10/30/2012 CHUNG AUGUSTE MD 795.01 ABNORMAL PAP - ASCUS 10/30/2012 NAN APRN, MERCEDES A 079.4 HPV 10/30/2012 NAN MASK DESIGNER, MERCEDES A 795.01 ABNORMAL PAP - ASCUS 10/30/2012 HAMIDA ARREDONDO, JARRELL S 079.4 HPV 10/30/2012 HAMIDA ARREDONDO, JARRELL S 795.01 ABNORMAL PAP - ASCUS 10/30/2012 HAMIDA ARREDONDO, JARRELL S 079.4 HPV 10/30/2012 HAMIDA ARREDONDO, JARRELL S 795.01 ABNORMAL PAP - ASCUS 10/30/2012 HAMIDA ARREDONDO, JARRELL S 079.4 HPV 10/30/2012 HAMIDA MASK DESIGNER, JARRELL S 795.01 ABNORMAL PAP - ASCUS 04/13/2014 NAN APRN, MERCEDES A 625.8 OTHER SPECIFIED SYMPTOMS ASSOCIATED WITH FEMALE GENITAL ORGANS 04/13/2014 HAMIDA ARREDONDO, JARRELL S 625.8 OTHER SPECIFIED SYMPTOMS ASSOCIATED WITH FEMALE GENITAL ORGANS 04/13/2014 HAMIDA ARREDONDO, JARRELL S 625.8 OTHER SPECIFIED SYMPTOMS ASSOCIATED WITH FEMALE GENITAL ORGANS 04/13/2014 HAMIDA ARREDONDO JARRELL S 625.8 OTHER SPECIFIED SYMPTOMS ASSOCIATED WITH FEMALE GENITAL ORGANS 05/07/2014 HAMIDA ARREDONDO, JARRELL S 682.6 CELLULITIS AND ABSCESS OF LEG EXCEPT FOOT 05/07/2014 HAMIDA ARREDONDO, JARRELL S 682.6 CELLULITIS AND ABSCESS OF LEG EXCEPT FOOT 05/07/2014 HAMIDA ARREDONDO, JARRELL S 682.6 CELLULITIS AND ABSCESS OF LEG EXCEPT FOOT 06/08/2014 HAMIDA ARREDONDO, JARRELL S 789.00 ABDOMINAL PAIN UNSPECIFIED SITE 06/08/2014 HAMIDA ARREDONDO JARRELL S 789.00 ABDOMINAL PAIN UNSPECIFIED SITE 06/12/2014 JARRELL MEI APRN S 707.12 ULCER OF CALF 06/12/2014 JARRELL MEI APRN S 707.12 ULCER OF CALF 06/15/2014 Ot 397.0 06/15/2014 Ot 429.3 06/15/2014 Ot 786.50 06/15/2014 Ot V76.12 07/07/2014 JARRELL MEI APRN S 574.20 CALCULUS OF GALLBLADDER WITHOUT CHOLECYSTITIS WITHOUT OBSTRUCTION 08/19/2014 GOLDY OLEA MD Ot 250.80 08/19/2014 GOLDY OLEA MD Ot 709.3 08/25/2014 GOLDY OLEA MD Ot 250.80 08/25/2014 GOLDY OLEA MD Ot 709.3 08/25/2014 Ot 397.0 08/25/2014 Ot 429.3 08/25/2014 Ot 786.50 08/25/2014 Ot V76.12 08/25/2014 JARRELL MEI Ot 789.07 08/25/2014 GOLDY OLEA MD Ot 250.80 08/25/2014 GOLDY OLEA MD Ot 709.3 08/26/2014 JARRELL MIE Ot 789.07 09/28/2014 GOLDY OLEA MD Ot 250.80 DIAB W OTH SPEC MANIFEST, TYPE II OR UNS 09/28/2014 GOLDY OLEA MD Ot 709.3 DEGENERATIVE SKIN DISORD 10/23/2014 Ot 397.0 10/23/2014 Ot 429.3 10/23/2014 Ot 786.50 10/23/2014 Ot V76.12 10/23/2014 JARRELL MEI Ot 789.07 10/23/2014 Ot V76.12 10/23/2014 JARRELL MEI Ot 789.07 11/05/2014 Ot V76.12 11/05/2014 JARRELL MEI Ot 789.07 12/21/2014 GOLDY OLEA MD Ot 250.80 DIAB W OTH SPEC MANIFEST, TYPE II OR UNS 12/21/2014 GOLDY OLEA MD Ot 278.01 MORBID OBESITY 12/21/2014 GOLDY OLEA MD Ot 707.12 ULCER OF CALF 12/21/2014 EMMIE HAYES, GOLDY Rahman Ot 709.3 DEGENERATIVE SKIN DISORD 12/21/2014 EMMIE HAYES, GOLDY Rahman Ot V85.41 BODY MASS INDEX 40.0-44.9, ADULT 12/30/2014 Ot 397.0 12/30/2014 Ot 429.3 12/30/2014 Ot 786.50 12/30/2014 Ot V76.12 12/30/2014 JARRELL MEI Ot 789.07 12/30/2014 EMMIE HAYES, GOLDY Rahman Ot 707.10 01/05/2015 Ot 397.0 01/05/2015 Ot 429.3 01/05/2015 Ot 786.50 01/05/2015 Ot V76.12 01/05/2015 JARRELL MEI Ot 789.07 01/05/2015 EMMIE HAYES, GOLDY Rahman Ot 707.10 01/12/2015 JARRELL MEI Ot 571.8 01/12/2015 JARRELL MEI Ot 574.20 02/02/2015 GOLDY OLEA MD Ot 707.10 02/02/2015 JARRELL MEI Ot 571.8 02/02/2015 JARRELL MEI Ot 574.20 02/02/2015 EMMIE HAYES, GOLDY Rahman Ot 707.10 02/15/2015 EMMIE HAYES, GOLDY Rahman Ot 707.10 02/15/2015 JARRELL MEI Ot 571.8 02/15/2015 JARRELL MEI Ot 574.20 02/15/2015 GOLDY OLEA MD Ot 707.10 02/15/2015 JARRELL MEI Ot 571.8 02/15/2015 JARRELL MEI Ot 574.20 02/28/2015 Ot N39.0 URINARY TRACT INFECTION, SITE NOT SPECIF 02/28/2015 Ot R10.84 GENERALIZED ABDOMINAL PAIN 02/28/2015 Ot R11.2 NAUSEA WITH VOMITING, UNSPECIFIED 03/11/2015 CHATO CHAIDEZ DO Ot E66.9 OBESITY, UNSPECIFIED 03/11/2015 CHATO CHAIDEZ DO Ot K80.10 CALCULUS OF GALLBLADDER W CHRONIC CHOLEC 03/11/2015 CHAIDEZCHATO NAVAS DO Negra Ot K80.20 03/11/2015 CHATO CHAIDEZ DO Negra Ot Z68.42 BODY MASS INDEX (BMI) 45.0-49.9, ADULT 03/22/2015 NANETTE THOMPSON MD Ot F17.210 NICOTINE DEPENDENCE, CIGARETTES, UNCOMPL 03/22/2015 NANETTE THOMPSON MD Ot J18.9 PNEUMONIA, UNSPECIFIED ORGANISM 03/22/2015 NANETTE THOMPSON MD Ot Z90.49 ACQUIRED ABSENCE OF OTHER SPECIFIED PART 03/26/2015 Ot 397.0 03/26/2015 Ot 429.3 03/26/2015 Ot 786.50 03/26/2015 Ot V76.12 03/26/2015 JARRELL MEI Ot 789.07 03/26/2015 EMMIE HAYES, GOLDY Rahman Ot 707.10 03/26/2015 JARRELL MEI Ot 571.8 03/26/2015 JARRELL MEI Ot 574.20 03/26/2015 DM WATERS CHATO Negra Ot K80.20 03/26/2015 DM WATERS CHATO Negra Ot Z01.818 03/26/2015 DM WATERS CHATO Negra Ot Z11.2 11/29/2015 MELISSA SHI APRN Ot E27.9 DISORDER OF ADRENAL GLAND, UNSPECIFIED 11/29/2015 MELISSA SHI APRN Ot K57.32 DVTRCLI OF LG INT W/O PERFORATION OR ABS 11/30/2015 MELISSA SHI APRN Ot E27.9 DISORDER OF ADRENAL GLAND, UNSPECIFIED 11/30/2015 MELISSA SHI MASK DESIGNER Ot K57.32 DVTRCLI OF LG INT W/O PERFORATION OR ABS 01/05/2016 JARRELL MEI Ot R10.31 RIGHT LOWER QUADRANT PAIN 01/28/2016 Ot 397.0 TRICUSPID VALVE DISEASE 01/28/2016 Ot 429.3 CARDIOMEGALY 01/28/2016 Ot 786.50 CHEST PAIN NOS 01/28/2016 Ot V76.12 OTH SCREEN MAMMO-MALIGN NEOPLASM OF SHADE 01/28/2016 JARRELL MEI Ot 789.07 ABDOMINAL PAIN, GENERALIZED 01/28/2016 EMMIE HAYES, GOLDY Rahman Ot 707.10 ULCER OF LOWER LIMB NOS 01/28/2016 JARRELL MEIP Ot 571.8 CHRONIC LIVER DIS NEC 01/28/2016 JARRELL MEIP Ot 574.20 CHOLELITHIASIS NOS 01/28/2016 CHATO CHAIDEZ DO Ot K80.20 CALCULUS OF GALLBLADDER W/O CHOLECYSTITI 01/28/2016 CHATO CHAIDEZ DO Ot Z01.818 ENCOUNTER FOR OTHER PREPROCEDURAL EXAMIN 01/28/2016 CHATO CHAIDEZ DO Ot Z11.2 ENCOUNTER FOR SCREENING FOR OTHER BACTER 01/28/2016 JARRELL MEI Ot R10.31 RIGHT LOWER QUADRANT PAIN 01/28/2016 Ot 397.0 TRICUSPID VALVE DISEASE 01/28/2016 Ot 429.3 CARDIOMEGALY 01/28/2016 Ot 786.50 CHEST PAIN NOS 01/31/2016 Ot 562.11 DIVERTICULITIS COLON (W/O MENT OF HEMORR 01/31/2016 Ot 789.03 ABDOMINAL PAIN, RIGHT LOWER QUADRANT 02/10/2016 JARRELL MEIP Ot R10.31 RIGHT LOWER QUADRANT PAIN 02/11/2016 MADLCORDELIA LEGAL EXECUTIVE ASSISTANT Ot Z12.31 ENCNTR SCREEN MAMMOGRAM FOR MALIGNANT NE 02/11/2016 MADLCORDELIA LEGAL EXECUTIVE ASSISTANT Ot Z12.31 ENCNTR SCREEN MAMMOGRAM FOR MALIGNANT NE 02/14/2016 Ot 397.0 TRICUSPID VALVE DISEASE 02/14/2016 Ot 429.3 CARDIOMEGALY 02/14/2016 Ot 786.50 CHEST PAIN NOS 02/14/2016 JARRELL MEI LEGAL EXECUTIVE ASSISTANT Ot R10.31 RIGHT LOWER QUADRANT PAIN 03/19/2017 JARRELL MEIP Ot R10.31 RIGHT LOWER QUADRANT PAIN 03/19/2017 MADCORDELIA Nowak LEGAL EXECUTIVE ASSISTANT Ot Z12.31 ENCNTR SCREEN MAMMOGRAM FOR MALIGNANT NE 03/22/2017 JARRELL MEI LEGAL EXECUTIVE ASSISTANT Ot R10.31 RIGHT LOWER QUADRANT PAIN 03/22/2017 Ot V76.12 OTH SCREEN MAMMO-MALIGN NEOPLASM OF SHADE 03/22/2017 JARRELL MEIP Ot 789.07 ABDOMINAL PAIN, GENERALIZED 03/22/2017 EMMIE HAYES, GOLDY Rahman Ot 707.10 ULCER OF LOWER LIMB NOS 03/22/2017 JARRELL MEI Ot 571.8 CHRONIC LIVER DIS NEC 03/22/2017 JARRELL EMI Ot 574.20 CHOLELITHIASIS NOS 03/22/2017 CHAIDEZ CHATO WATERS Ot K80.20 CALCULUS OF GALLBLADDER W/O CHOLECYSTITI 03/22/2017 CHATO CHAIDEZ DO Ot Z01.818 ENCOUNTER FOR OTHER PREPROCEDURAL EXAMIN 03/22/2017 CHAIDEZ CHATO WATERS Ot Z11.2 ENCOUNTER FOR SCREENING FOR OTHER BACTER 03/22/2017 Ot V76.12 OTH SCREEN MAMMO-MALIGN NEOPLASM OF SHADE 03/22/2017 JARRELL MEI Ot 789.07 ABDOMINAL PAIN, GENERALIZED 03/22/2017 EMMIE HAYES, GOLDY Rahman Ot 707.10 ULCER OF LOWER LIMB NOS 03/22/2017 JARRELL MEI Ot 571.8 CHRONIC LIVER DIS NEC 03/22/2017 JARRELL MEI Ot 574.20 CHOLELITHIASIS NOS 03/22/2017 CHATO CHAIDEZ DO Ot K80.20 CALCULUS OF GALLBLADDER W/O CHOLECYSTITI 03/22/2017 CHATO CHAIDEZ DO Ot Z01.818 ENCOUNTER FOR OTHER PREPROCEDURAL EXAMIN 03/22/2017 CHATO CHAIDEZ DO Ot Z11.2 ENCOUNTER FOR SCREENING FOR OTHER BACTER 03/23/2017 JARRELL MEI Ot E04.1 NONTOXIC SINGLE THYROID NODULE 03/23/2017 JARRELL MEI Ot K63.9 DISEASE OF INTESTINE, UNSPECIFIED 04/02/2017 JARRELL MEI Ot R10.31 RIGHT LOWER QUADRANT PAIN 04/02/2017 JARRELL MEI Ot E04.1 NONTOXIC SINGLE THYROID NODULE 04/02/2017 JARRELL MEI Ot K63.9 DISEASE OF INTESTINE, UNSPECIFIED 04/03/2017 GOLDY OLEA MD Ot 707.10 ULCER OF LOWER LIMB NOS 04/03/2017 JARRELL MEI Ot 571.8 CHRONIC LIVER DIS NEC 04/03/2017 JARRELL MEI LEGAL EXECUTIVE ASSISTANT Ot 574.20 CHOLELITHIASIS NOS 04/04/2017 JIM HAYES, VIRI Tran Ot E04.9 NONTOXIC GOITER, UNSPECIFIED Procedures Code Description [place] [address] A1C (IN-HOUSE) 59558 TRICHOMONAS (IN-HOUSE) 08/23/2012 81138 CULTURE UROGENITAL 08/26/2012 79556 EXCISION BENIGN LESION <0.5 cm (specify location in Med[facility] description) 08/26/2012 57479 MAMMOGRAM, SCREENING 08/26/2012 11531 GC/CHLAM PROBE (STATE) 08/26/2012 52347 PAP SMEAR 2012 Q0091 PAP SMEAR OBTAIN SMEAR 08/26/2012 32155 COLP W/BIOPSY OF CERVIX 10/30/2012 25772 A1C (RML) 2013 83049 CULTURE UROGENITAL 05/10/2014 26097 PAP SMEAR 2013 10423 THERAPUTIC INJ SQ/IM 08/10/2014 J0696 ROCEPHIN INJ 1 g 08/10/2014 43132 CULTURE WOUND (AEROBIC) 08/12/2014 Results Encounters ACCT No. Visit Date/Time Discharge Status Pt. Type Provider Facility Loc./Unit Complaint [id number] 08/13/2014 17:14:00 08/13/2014 23: 59:59 CLS Outpatient JARRELL MEI APRN [id number] 06/12/2014 11:12:00 06/12/2014 23: 59:59 CLS Outpatient JARRELL MEI APRN [id number] 05/07/2014 12:21:00 05/07/2014 23: 59:59 CLS Outpatient JARRELL MEI APRN [id number] 04/13/2014 18:02:00 04/13/2014 23: 59:59 CLS Outpatient MERCEDES MONTANA APRN [id number] 12/05/2012 16:48:00 12/05/2012 23: 59:59 CLS Outpatient MOLINA HAYES, CHUNG [id number] 08/23/2012 09:28:00 08/23/2012 23: 59:59 CLS Outpatient MERCEDES MONTANA APRN [id number] 08/05/2012 11:44:00 08/05/2012 23: 59:59 CLS Outpatient [id number] 04/24/2012 08:37:00 04/24/2012 23: 59:59 CLS Outpatient [id number] 10/30/2012 13:14:00 Document Registration [id number] 04/05/2017 13:16:00 2016 23:59:59 CLS Outpatient VIRI FERNANDEZ MD [facility] RAD LEFT THYROID NODULES [id number] 04/03/2017 05:38:00 2016 13:08:00 DIS Outpatient VIRI FERNANDEZ MD [facility] PREOP COLO [id number] 04/02/2017 14:23:00 2016 23:59:59 CLS Outpatient VIRI FERNANDEZ MD [facility] RAD ABNORMAL CHEST CT NOTED LEFT NODULE THYROID [id number] 03/22/2017 13:19:00 2016 23:59:59 CLS Outpatient JARRELL MEI [facility] RAD R36.9 URETHRAL DISCHARGE [id number] 02/10/2016 13:39:00 2015 23:59:59 CLS Outpatient CORDELIA GONSALEZ LEGAL EXECUTIVE ASSISTANT [facility] RAD SCREENING [id number] 01/03/2016 15:12:00 2015 23:59:59 CLS Outpatient JARRELL MEI [facility] RAD RLQ ABD PAIN [id number] 11/29/2015 10:25:00 2015 13:15:00 DIS Emergency MELISSA SHI APRN [facility] ER LOWER RIGHT SIDE ABD PAIN [id number] 03/22/2015 07:42:00 2014 11:00:00 DIS Emergency NANETTE THOMPSON MD [facility] ER LOWER RIGHT SIDE PAIN [id number] 03/11/2015 06:04:00 2014 14:13:00 DIS Outpatient CHATO CHAIDEZ DO [facility] SDC CHOLELITHIASIS [id number] 03/09/2015 08:00:00 2014 23:59:59 CLS Outpatient CHATO CHAIDEZ DO [facility] PREOP CHOLELITHIASIS [id number] 01/05/2015 09:23:00 2014 23:59:59 CLS Outpatient JARRELL MEI [facility] RAD BACK PAIN [id number] 12/07/2014 15:11:00 2014 11:43:00 DIS Outpatient GOLDY OLEA MD [facility] WOUNDCARE [id number] 11/09/2014 16:24:00 2014 23:59:59 CLS Outpatient GOLDY OLEA MD [facility] LAB LEG ULCER [id number] 09/01/2014 14:10:00 2014 15:00:00 DIS Outpatient GOLDY OLEA MD [facility] WOUNDCARE LEG WOUND [id number] 06/17/2014 14:11:00 2014 23:59:59 CLS Outpatient JARRELL MEI [facility] RAD GENERALIZED ABD PAIN [id number] 04/09/2017 11:45:00 PEN Preadmit JIM HAYES, VIRI Tran [facility] ENDO COLOVESICAL FISTULA/ABNORMAL CT [id number] 03/02/2015 10:14:00 Document Registration [id number] 06/15/2014 16:25:00 Document Registration [id number] 08/27/2012 08:55:00 Document Registration [id number] 10/12/2011 21:19:00 Document Registration [id number] 09/18/2011 09:26:00 Document Registration [id number] 07/05/2010 19:58:00 Document Registration
[2017-04-09] MEDS: MIDAZOLAM 2 MG/2 ML (VERSED) VIAL IVP PRN ×6 (13:00→13:19)
[2017-04-09] MEDS: fentaNYL INJECTION 100 MCG/2 ML AMP IVP PRN ×2 (13:03→13:08)
[2017-04-09] MEDS ORDERED: MIDAZOLAM 2 MG/2 ML (VERSED) VIAL ONE ×2 (13:08)
--- NOTE | 2017-04-09 13:34 | Endo Procedure Record ---
Endo Procedure Report Date of Procedure Apr 09, 2017 Surgeon (s) VIRI FERNANDEZ MD Post Procedure/Op Diagnosis 1.sigmoid diverticulitis 2. 3 mm polyp at the distal sigmoid colon 3. 4 mm polyp at the mid sigmoid colon Procedure Performed colonoscopy to cecum Snare polypectomy 2 Description of Procedure Anesthesia Type: Conscious Sedation Specimen(s) collected/removed sigmoid polyps 2 Description of the Procedure indication for the procedure: This lady is due to undergo sigmoid resection, to manage a colovesical fistula, possibly of diverticular origin. Prior to this, performing colonoscopy was felt to be reasonable. Informed consent was obtained after reviewing the procedure in detail. Description of procedure: She was placed in left lateral decubitus position and her vital signs were monitored. Conscious sedation was achieved using Versed and fentanyl. Digital rectal examination was unremarkable. The colonoscope was then introduced in the rectum and advanced all the way up to the cecum. Scope was then withdrawn slowly and the mucosa examined in a systematic fashion. Findings: 1. 3 mm polyp at the distal sigmoid colon, that was snared and retrieved 2. 5 mm polyp at the mid sigmoid colon, that was snared and retrieved using a Quintanilla net collection device. 3.sigmoid diverticulitis involving the mid segment of sigmoid colon. She tolerated the procedure well and was taken back to the nursing area in a stable condition. 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 Incidental sigmoid polyp excised. Recommend surveillance colonoscopy in 2 years. Copies To: CHUNG AUGUSTE MD,VIRI Tran MD Apr 09, 2017 1:33 pm
--- NOTE | 2017-04-09 13:35 | Discharge Inst-Simple/Standard ---
Discharge Inst-Standard Discharge Medications New, Converted or Re-Newed RX: Other Patient Instructions/Follow Up Plan of Care/Instructions/FU: follow-up with me in this Sunday, the , to discuss surgical procedure and path reports Activity as Tolerated: Yes Discharge Diet: No Restrictions VIRI FERNANDEZ MD Apr 09, 2017 1:35 pm
[2017-04-09] MEDS ORDERED: LABETALOL HCL 20 MG/4 ML VIAL ONE (13:46)
[2017-04-09] MEDS ORDERED: ENALAPRILAT 2.5 MG/2 ML (VASOTEC) VIAL IV ONE ×2 (13:57→14:15)
[2017-04-09] MEDS ORDERED: LABETALOL HCL 20 MG/4 ML VIAL IV ONE ×2 (14:00→14:15)
[2017-04-09 14:20] VITALS: BP 237/130
[2017-04-09 14:40] VITALS: BP 177/113
[2017-04-09 15:05] VITALS: BP 118/99
[2017-04-09 15:20] VITALS: BP 118/99
== END 2017-04-09 15:20 | disposition home or self-care (01) ==
LOC: ENDO 11:41
PROVIDERS: ATTEND Surgery
DX: D12.5 Benign neoplasm of sigmoid colon (principal); K63.5 Polyp of colon; K57.32 Diverticulitis of large intestine without perforation or abscess without bleeding; E11.9 Type 2 diabetes mellitus without complications; I10 Essential (primary) hypertension; Z79.84 Long term (current) use of oral hypoglycemic drugs; Z79.899 Other long term (current) drug therapy; F17.210 Nicotine dependence, cigarettes, uncomplicated
CPT/HCPCS: 88305

== ENCOUNTER → 2018-02-23 | Outpatient (CLI) | payer SELFPAY ==
[~2018-02-23] MED LIST changes: +ACHD5005 PO; -HYDR-3812 PO; +HYDR-4226 PO; -HYDR-757 PO
--- NOTE | 2018-02-23 08:36 | Diagnostic Imaging Report ---
EXAM: MRI THORACIC SPINE W/O CON INDICATION: Lower thoracic pain. COMPARISON: None. FINDINGS: Normal alignment. Vertebral body heights preserved. There are moderate diffuse degenerative endplate changes. There is a central disc protrusion at T7-T8 which combines with epidural lipomatosis that results in moderate spinal canal narrowing. There is also mild abnormal T2 signal within the thoracic cord at this level. Small disc protrusion at T12-L1 result in no substantial spinal canal narrowing. No high-grade neural foraminal narrowing. No suspicious bone marrow signal. The visualized paravertebral soft tissues are unremarkable. IMPRESSION: 1. Moderate spondylotic changes in the thoracic spine. No acute osseous findings. 2. Central disc protrusion at T7-T8 combines with epidural lipomatosis to result in moderate spinal canal narrowing. There is also mild abnormal T2 signal within the thoracic cord at this level. Dictated by: Dictated on workstation # [id number]
== END ==
LOC: RAD 07:11
PROVIDERS: ATTEND Physician Assistant
DX: M47.814 Spondylosis without myelopathy or radiculopathy, thoracic region (principal); M51.24 Other intervertebral disc displacement, thoracic region; E88.2 Lipomatosis, not elsewhere classified; M48.04 Spinal stenosis, thoracic region; M51.36 Other intervertebral disc degeneration, lumbar region
CPT/HCPCS: 72146

== ENCOUNTER 2019-12-17 09:22 | Inpatient (IN) | payer SELFPAY ==
[2019-12-17] VITALS (18 sets, daily range): BP systolic 16–176; BP diastolic 72–119
[~2019-12-17] VITALS: Ht 160 cm; Wt 114.2 kg
[~2019-12-17 09:22] MED LIST changes: -GLIM4TAB PO; +GLIM4TAB5 PO
[2019-12-17] MEDS ORDERED: MELATONIN 3 MG TABLET PO PRN (09:45)
[2019-12-17] MEDS ORDERED: CALCIUM CARBONATE 500 MG (TUMS) TAB.CHEW PO PRN (09:45)
[2019-12-17] MEDS ORDERED: ONDANSETRON 4 MG/2 ML (SDV) Z0FRAN IVP PRN (09:45)
[2019-12-17] MEDS ORDERED: DOCUSATE SODIUM 100 MG (COLACE) CAP PO PRN (09:45)
[2019-12-17] MEDS ORDERED: ACETAMINOPHEN 500 MG TAB (TYLENOL) PO PRN (09:45)
[2019-12-17] MEDS ORDERED: ALPRAZolam 0.25 MG (XANAX) TAB PO PRN (09:45)
[2019-12-17] MEDS ORDERED: LOPERAMIDE 2 MG (IMODIUM) TABLET PO PRN (09:45)
[2019-12-17] MEDS ORDERED: fentaNYL INJECTION 100 MCG/2 ML AMP IVP PRN (09:45)
[2019-12-17] MEDS ORDERED: diphenhydrAMINE 25 MG TAB (BENADRYL) PO PRN (09:45)
[2019-12-17] MEDS ORDERED: BISACODYL 10 MG SUPP (DULCOLAX) PR PRN (09:45)
[2019-12-17] MEDS ORDERED: MEROPENEM 500 MG in WATER (STERILE) FOR INJECTION 10 ML IV ONE (09:45)
[2019-12-17] MEDS ORDERED: LACTULOSE SYRUP 10GM/15ML (ENULOSE) 30ML UDC PO PRN (09:45)
[2019-12-17] MEDS ORDERED: ONDANSETRON 4 MG (ZOFRAN) ORAL DISSOLVE TAB PO PRN (09:45)
[2019-12-17] MEDS ORDERED: HYDROcodone/APAP 5 MG/325 MG (LORTAB) TAB PO PRN (09:45)
[2019-12-17] MEDS: VASOPRESSIN INJECTION 20 UNIT in NORMAL SALINE 100 ML IV SCH ×2 (10:36→15:52)
[2019-12-17] MEDS: NS IV 1000 ML 1,000 ML IV SCH ×4 (10:38→21:48)
--- NOTE | 2019-12-17 10:43 | Diagnostic Imaging Report ---
EXAMINATION: Portable erect AP chest at 1004 AM INDICATION: Fever The heart size is within normal limits and stable when compared to 03/22/15. The lungs are clear. There is no evidence for failure, pneumonia or for pleural effusion. The mediastinum is not widened. The osseous structures are intact. IMPRESSION: There is no evidence for an acute cardiopulmonary abnormality. Dictated by: Dictated on workstation # [id number]
[2019-12-17 10:49] LABS: BASOPHILS % (AUTO) 0 % (0-10); EOSINOPHILS % (AUTO) 0 % (0-10); HEMATOCRIT 42 % (35-52); HEMOGLOBIN 14.7 G/DL (11.5-16.0); LYMPHOCYTES # (AUTO) 1.5 X 10^3 (1.0-4.0); LYMPHOCYTES % (AUTO) 11 % (12-44); MEAN CORPUSCULAR HEMOGLOBIN 29 PG (25-34); MEAN CORPUSCULAR HGB CONC 35 G/DL (32-36); MEAN CORPUSCULAR VOLUME 83 FL (80-99); MONOCYTES # (AUTO) 0.7 X 10^3 (0.0-1.0); MONOCYTES % (AUTO) 5 % (0-12); NEUTROPHILS # (AUTO) 11.2 X 10^3 (1.8-7.8); NEUTROPHILS % (AUTO) 84 % (42-75); PLATELET COUNT 242 10^3/uL (130-400); RED CELL DISTRIBUTION WIDTH 13.2 % (10.0-14.5); WHITE BLOOD COUNT 13.5 10^3/uL (4.3-11.0)
[2019-12-17 10:53] LABS: ALBUMIN 3.5 GM/DL (3.2-4.5); CHLORIDE 96 MMOL/L (98-107); POTASSIUM 3.3 MMOL/L (3.6-5.0)
[2019-12-17 10:54] LABS: SODIUM 132 MMOL/L (135-145)
[2019-12-17 10:55] LABS: CALCIUM 8.9 MG/DL (8.5-10.1)
[2019-12-17 10:56] LABS: GLUCOSE 193 MG/DL (70-105); TOTAL PROTEIN 8.1 GM/DL (6.4-8.2)
[2019-12-17 10:57] LABS: CARBON DIOXIDE 21 MMOL/L (21-32)
[2019-12-17 10:58] LABS: BILIRUBIN,TOTAL 1.1 MG/DL (0.1-1.0)
[2019-12-17 10:59] LABS: ALKALINE PHOSPHATASE 153 U/L (40-136); CREATININE SERUM 0.83 MG/DL (0.60-1.30); GFR ESTIMATED > 60
[2019-12-17 11:00] LABS: BUN/CREATININE RATIO 16
[2019-12-17] MEDS ORDERED: VANCOMYCIN INJECTION 2,000 MG in NS IV 500 ML 500 ML IV NR (11:00)
[2019-12-17 11:02] LABS: ALANINE AMINOTRANSFERASE 57 U/L (0-55)
--- NOTE | 2019-12-17 11:37 | History & Physical-Hospitalist ---
History of Present Illness HPI/Chief Complaint CC: Presumed sepsis HPI: This is a 49yoWF clinic Pt of [facility] with a known fistula between the rectum and the bladder of unknown source, who is unable to afford surgical correction at who presents to [facility] with tachycardia, fever and components of sepsis checklist. She was directly admitted to ICU 2, has been swabbed for COVID, but placed on Meropenem and Vanc for presumed resistant organism for UTI. Currently Pt denies any SOB, I doubt this is COVID. IV fluids were given on schedule. I will review her home medication and will monitor Pt closely. Source: patient, RN/MD Exam Limitations: no limitations Date Seen 12/17/19 Time Seen by a Provider: 10:00 Attending Physician Aminah Tolentino DO PCP Jimmie Booth MD Referring Physician Date of Admission Dec 17, 2019 at 09:33 Home Medications & Allergies Home Medications Reviewed patient Home Medication Reconciliation performed by pharmacy medication reconciliations composite technician and/or nursing. Patients Allergies have been reviewed. Allergies Allergies Uncoded Allergies oranges ( Allergy, Unknown, 06/17/14) wasps ( Allergy, Unknown, 06/17/14) Past Bkpubmj-Tqhrzs-Bdbnwt Hx Past Med/Social Hx: Reviewed Nursing Past Med/Soc Hx, Reviewed and Corrections made Patient Social History Marrital Status: single Employed/Student: unemployed Alcohol Use: Denies Use Recreational Drug Use: No Smoking Status: Current Everyday Smoker Type Used: Cigarettes Physical Abuse Screen: No Sexual Abuse: No Recent Foreign Travel: No Contact w/other who traveled: No Recent Hopitalizations: No Recent Infectious Disease Expo: No Seasonal Allergies Seasonal Allergies: No Past Medical History Surgeries: Section, Gallbladder, Tubal Ligation Cardiac: Hypertension Reproductive: No Sexually Transmitted Disease: No HIV/AIDS: No Female Reproductive Disorders: Menstrual Problems Gastrointestinal: Gall Bladder Disease Musculoskeletal: Arthritis, Chronic Back Pain Endocrine: Diabetes, Non-Insulin dep Loss of Vision: Bilateral Hearing Impairment: Denies History of Blood Disorders: No Adverse Reaction to Blood Bustamante: No Family History No Pertinent Family Hx Review of Systems Constitutional: see HPI Genitourinary: dysuria, frequency, hematuria, hesitancy Physical Exam Physical Exam Vital Signs Vital Signs - First Documented 12/17/19 12/17/19 12/17/19 12/17/19 12/17/19 12/17/19 09:45 10:15 10:16 10:30 12:04 14:21 Temp 36.7 Pulse 97 Resp 23 Pulse Ox 97 O2 Delivery Room Air FiO2 21 Capillary Refill : Height, Weight, BMI Height: 5'3.00" Weight: 250lbs. 0.0oz. 113.598147sb; 41.01 BMI Method:Estimated General Appearance: No Apparent Distress, Chronically ill, Obese Eyes: Right Eye Normal Inspection, Right Eye PERRL HEENT: PERRL/EOMI, Normal ENT Inspection, Pharynx Normal, Moist Mucous Membranes Neck: Full Range of Motion, Normal Inspection, Non Tender Respiratory: Chest Non Tender, Lungs Clear, Normal Breath Sounds, No Accessory Muscle Use, No Respiratory Distress Cardiovascular: Regular Rate, Rhythm, No Edema, No Gallop, No JVD, No Murmur, Normal Peripheral Pulses Gastrointestinal: Normal Bowel Sounds, No Organomegaly, No Pulsatile Mass, Non Tender, Soft Back: Normal Inspection, No CVA Tenderness, No Vertebral Tenderness Extremity: Normal Capillary Refill, Normal Inspection, Normal Range of Motion, Non Tender, No Calf Tenderness, No Pedal Edema Neurologic/Psychiatric: Alert, Oriented x3, No Motor/Sensory Deficits, Normal Mood/Affect Skin: Normal Color, Warm/Dry Lymphatic: No Adenopathy Results Results/Procedures Labs Laboratory Tests 12/17/19 10:10 Patient resulted labs reviewed. Assessment/Plan Admission Diagnosis Assessment: Sepsis UTI Rectal-bladder Fistula Plan: Broad spectrum Antibiotics Resistant organism suspected Rivera cultured Monitor closely Arrange for possible rectal surgery consultation in [place] Admission Status: Inpatient Order (span 2 midnights) Reason for Inpatient Admission: sepsis Diagnosis/Problems Diagnosis/Problems (1) Sepsis (2) Rectovesical fistula (3) Urinary tract infection Status: Acute Clinical Quality Measures DVT/VTE Risk/Contraindication: Risk Factor Score Per Nursin RFS Level Per Nursing on Admit: 4+=Very High AMINAH TOLENTINO DO Dec 17, 2019 11:37
[2019-12-17] MEDS: ENOXAPARIN 40 MG/0.4 ML (LOVENOX) SYR SC SCH ×2 (12:05→22:00)
[2019-12-17 12:45] LABS: CLARITY,URINE SL CLOUDY; COLOR,URINE ORANGE; GLUCOSE, URINE (UA) NEGATIVE (NEGATIVE); KETONES,URINE 2+ (NEGATIVE); LEUKOCYTE ESTERASE ,URINE 2+ (NEGATIVE); NITRITE,URINE POSITIVE (NEGATIVE); PROTEIN,URINE 2+ (NEGATIVE)
[2019-12-17 12:54] LABS: BACTERIA,URINE LARGE /HPF; BILIRUBIN,URINE 2+ (NEGATIVE); SQUAMOUS EPITHELIAL CELL,UR 25-50 /HPF; WBC,URINE >100 /HPF
[2019-12-17] MEDS ORDERED: NAPR220C11 PO (12:54)
--- NOTE | 2019-12-17 12:55 | NUR ---
I SPOKE WITH THE PATIENT ON THE ROOM PHONE TO COMPLETE THE MED REC. THERE WERE NO MEDICATIONS ON THE EXTERNAL MED HISTORY. OTC: VASILE
[2019-12-17 14:01] LABS: PROTHROMBIN TIME PATIENT 13.7 SEC (12.2-14.7)
[2019-12-17] MEDS ORDERED: RT-ALBUTEROL INHALER HFA (VENTOLIN HFA) 18 GM IH PRN (15:45)
[2019-12-17] MEDS: MEROPENEM 500 MG in WATER (STERILE) FOR INJECTION 10 ML IV SCH ×2 (16:52→21:49)
[2019-12-17] MEDS: polyethylene glycoL POWDER 17 GM (MIRALAX) PACK PO SCH (21:47)
[2019-12-17] MEDS: SENNA W/DOCUSATE (SENOKOT S) TABLET PO SCH (21:47)
[2019-12-17] MEDS ORDERED: VANCOMYCIN INJECTION 1,500 MG in NS IV 500 ML 500 ML IV SCH (23:00)
[2019-12-18] VITALS (14 sets, daily range): BP systolic 146–190; BP diastolic 67–106
[2019-12-18] MEDS: VASOPRESSIN INJECTION 20 UNIT in NORMAL SALINE 100 ML IV SCH (02:51)
[2019-12-18 03:45] LABS: BASOPHILS % (AUTO) 0 % (0-10); EOSINOPHILS # (AUTO) 0.1 10^3/uL (0.0-0.3); EOSINOPHILS % (AUTO) 1 % (0-10); HEMATOCRIT 38 % (35-52); HEMOGLOBIN 13.2 G/DL (11.5-16.0); LYMPHOCYTES # (AUTO) 1.3 X 10^3 (1.0-4.0); LYMPHOCYTES % (AUTO) 12 % (12-44); MEAN CORPUSCULAR HEMOGLOBIN 29 PG (25-34); MEAN CORPUSCULAR HGB CONC 35 G/DL (32-36); MEAN CORPUSCULAR VOLUME 84 FL (80-99); MEAN PLATELET VOLUME 10.8 FL (7.4-10.4); MONOCYTES # (AUTO) 0.6 X 10^3 (0.0-1.0); MONOCYTES % (AUTO) 6 % (0-12); NEUTROPHILS % (AUTO) 81 % (42-75); PLATELET COUNT 196 10^3/uL (130-400); RED CELL DISTRIBUTION WIDTH 12.9 % (10.0-14.5); WHITE BLOOD COUNT 11.1 10^3/uL (4.3-11.0)
[2019-12-18 04:00] LABS: BUN/CREATININE RATIO 15; CARBON DIOXIDE 19 MMOL/L (21-32); CHLORIDE 103 MMOL/L (98-107); CREATININE SERUM 0.66 MG/DL (0.60-1.30); GFR ESTIMATED > 60; GLUCOSE 150 MG/DL (70-105); MAGNESIUM 2.1 MG/DL (1.6-2.4); PHOSPHORUS 2.6 MG/DL (2.3-4.7); POTASSIUM 2.7 MMOL/L (3.6-5.0); SODIUM 135 MMOL/L (135-145)
[2019-12-18] MEDS ORDERED: POTASSIUM CL 10MEQ/50ML IVPB 50 ML IV ONE (05:00)
--- NOTE | 2019-12-18 05:07 | Pulmonary Consultation ---
History of Present Illness History of Present Illness Date Seen by Provider: Dec 18, 2019 Time Seen by Provider: 04:58 Date of Admission History of Present Illness 49yo with hx of fistula between rectum and bladder presented to [facility] secondary to tachycardia, fever, and found to have sepsis. She was not able to afford repair of fistula at . She was admitted to ICU with Merrem, and vanco. Denies SOB, or CP. Allergies and Home Medications Allergies Uncoded Allergies: oranges (Allergy, Unknown, 06/17/14) wasps (Allergy, Unknown, 06/17/14) Home Medications Naproxen Sodium 220 Mg Capsule, 220 MG PO Q8H PRN for PAIN-MILD (1-4), (Reported) Past Rzpgwul-Oxiybt-Kckgmz Hx Past Med/Social Hx: Reviewed Nursing Past Med/Soc Hx, Reviewed and Corrections made Patient Social History Alcohol Use: Denies Use Recreational Drug Use: No Smoking Status: Current Everyday Smoker Type Used: Cigarettes Recent Foreign Travel: No Contact w/Someone Who Travel: No Recent Infectious Disease Expo: No Recent Hopitalizations: No Seasonal Allergies Seasonal Allergies: No Past Medical History Surgeries: Yes Section, Gallbladder, Tubal Ligation Respiratory: No Cardiac: Yes (DOESN'T REQUIRE MEDS) Hypertension Neurological: No Reproductive Disorders: No Female Reproductive Disorders: Menstrual Problems Sexually Transmitted Disease: No HIV/AIDS: No Gastrointestinal: Yes (COLOVESICAL FISTULA) Gall Bladder Disease Musculoskeletal: Yes (IN BACK) Arthritis, Chronic Back Pain Endocrine: Yes Diabetes, Non-Insulin dep Loss of Vision: Bilateral Hearing Impairment: Denies Cancer: No Psychosocial: No Integumentary: No Blood Disorders: No Adverse Reaction/Blood Tranf: No Family Medical History No Pertinent Family Hx Review of Systems Time Seen by Provider: 05:10 Sepsis Event Evaluation Height, Weight, BMI Height: 5'3.00" Weight: 250lbs. 0.0oz. 113.028840ye; 41.01 BMI Method:Estimated Exam Exam Vital Signs Date Time Temp Pulse Resp B/P (MAP) Pulse Ox O2 Delivery O2 Flow Rate FiO2 12/18/19 03:00 75 22 167/78 (107) 94 Room Air 12/18/19 02:00 77 19 147/67 (93) 95 Room Air 12/18/19 01:00 94 12/18/19 01:00 94 30 151/101 (118) 90 Room Air 12/18/19 00:30 36.2 12/18/19 00:00 91 16 187/82 (117) 97 Room Air 12/18/19 00:00 98 Room Air 12/17/19 23:00 97 35 165/86 (112) 97 Room Air 12/17/19 22:07 79 26 161/81 (107) 97 Room Air 12/17/19 21:30 37.3 12/17/19 21:00 80 16 176/82 (113) 96 Room Air 12/17/19 20:00 101 27 97 Room Air 12/17/19 20:00 98 Room Air 12/17/19 19:58 103 12 155/90 (111) 96 Room Air 12/17/19 19:00 82 12/17/19 19:00 82 18 161/72 (101) 96 Room Air 12/17/19 18:00 96 35 168/82 (110) 99 Room Air 12/17/19 17:00 101 17 168/91 (116) 98 Room Air 12/17/19 16:45 37.1 12/17/19 16:00 99 Room Air 12/17/19 16:00 86 15 150/75 (100) 92 Room Air 12/17/19 15:00 86 14 157/85 (109) 95 Room Air 12/17/19 14:21 36.7 96 99 21 12/17/19 14:00 90 31 171/117 (135) 96 Room Air 12/17/19 13:00 96 12/17/19 13:00 96 23 116/99 (105) 99 Room Air 12/17/19 12:04 36.7 93 18 169/94 (119) 98 Room Air 12/17/19 12:00 99 Room Air 12/17/19 11:00 97 35 165/86 (112) 97 Room Air 12/17/19 10:45 93 20 168/119 (135) 92 Room Air 12/17/19 10:30 98 23 150/98 (115) 95 Room Air 12/17/19 10:16 97 12/17/19 10:15 154/104 (121) 97 Room Air 12/17/19 10:00 152/104 (120) 12/17/19 10:00 152/104 (120) 12/17/19 09:45 Room Air I & O 12/18/19 07:00 Intake Total 4985 ml Output Total 400 ml Balance 4585 ml Height & Weight Height: 5'3.00" Weight: 250lbs. 0.0oz. 113.495395mp; 41.01 BMI Method:Estimated General Appearance: No Apparent Distress, Chronically ill, Obese HEENT: PERRL/EOMI, Normal ENT Inspection, Pharynx Normal, Moist Mucous Membranes Neck: Full Range of Motion, Normal Inspection, Non Tender Respiratory: Chest Non Tender, Lungs Clear, Normal Breath Sounds, No Accessory Muscle Use, No Respiratory Distress Cardiovascular: Regular Rate, Rhythm, No Edema, No Gallop, No JVD, No Murmur, Normal Peripheral Pulses Extremity: Normal Capillary Refill, Normal Inspection, Normal Range of Motion, Non Tender, No Calf Tenderness, No Pedal Edema Neurologic/Psychiatric: Alert, Oriented x3, No Motor/Sensory Deficits, Normal Mood/Affect Skin: Normal Color, Warm/Dry Lymphatic: No Adenopathy Results Lab Laboratory Tests 12/17/19 10:10 12/18/19 03:28 Assessment/Plan Assessment/Plan UTI with sepsis -IVF -Merrem and Vanco -Await cultures Rectal-cystic fistula -Dr. Goodman is arranging surgical repair in [facility] testing pending Metabolic lactic acidosis -IVF and monitor Hypokalemia -Replace FRIDA MARTINEZ DO Dec 18, 2019 05:07
[2019-12-18] MEDS: MEROPENEM 500 MG in WATER (STERILE) FOR INJECTION 10 ML IV SCH ×4 (05:30→23:18)
[2019-12-18] MEDS: POTASSIUM CL 10MEQ/50ML IVPB 50 ML IV SCH ×4 (05:30→09:55)
[2019-12-18] MEDS: NS IV 1000 ML 1,000 ML IV SCH (05:31)
[2019-12-18] MEDS ORDERED: POTASSIUM CL 10MEQ/50ML IVPB 50 ML IV SCH (06:00)
[2019-12-18] MEDS ORDERED: MAGNESIUM 1 GM/100 ML IVPB 100 ML IV SCH (06:00)
[2019-12-18] MEDS ORDERED: KCL 20 MEQ TAB (K-DUR) PO SCH (06:00)
[2019-12-18] MEDS: SENNA W/DOCUSATE (SENOKOT S) TABLET PO SCH ×2 (07:39→19:23)
[2019-12-18] MEDS: polyethylene glycoL POWDER 17 GM (MIRALAX) PACK PO SCH ×2 (07:39→19:23)
--- NOTE | 2019-12-18 08:45 | NUR ---
REPORT CALLED TO CECE CORTES.
[2019-12-18] MEDS ORDERED: POTASSIUM PHOSPHATE INJ 30 MM in NS (IVPB) 250 ML IV ONE (09:00)
--- NOTE | 2019-12-18 09:04 | NUR ---
THIS RN NOTIFIED DR. TOLENTINO OF PT BEING NIDDM AND HAS NO ACCUCHECKS OR SLIDING SCALE INSULIN ORDER. THIS RN ALSO NOTIFIED DR. TOLENTINO THAT PT IS HYPERTENSIVE AT 180S/80S WITH NO SCHEDULED OR PRN BLOOD PRESSURE MEDICATIONS ORDERED. THIS RN RECEIVED ORDER TO HEPLOCK PT'S IV AND GIVE LASIX 20MG IV X1 NOW. ORDERS PLACED BY THIS RN, SEE ORDER HX.
[2019-12-18] MEDS ORDERED: amLODIPine 5 MG (NORVASC) TAB PO NR (09:15)
[2019-12-18] MEDS ORDERED: FUROSEMIDE 40 MG/4 ML INJ (LASIX) IVP NR (09:15)
[2019-12-18] MEDS ORDERED: TROUGH ORDER-PHARMACY XX NR (10:00)
--- NOTE | 2019-12-18 10:06 | NUR ---
PT TRANSPORTED TO 4TH FLOOR BY THIS RN AND MARYBETH NOGUEIRA AT SIDE VIA WHEELCHAIR. IV X1 INTACT ATTACHED TO IV PUMP/MEDICATIONS. LICENSED EMBALMER IN PLACE. PT HANDLED TRANSFER WELL AND WITHOUT DISTRESS UPON ARRIVAL TO NEW PT ROOM. CECE CORTES IN FULL PPE AND AWAITING PT ARRIVAL.
--- NOTE | 2019-12-18 10:19 | NUR ---
REPORT RECEIVED FROM CECE ANN. PT TRANSFERRED TO ROOM 424, PT TOLERATED TRANSFER WELL. THIS RN ASSUMED CARE OF PT AT THIS TIME.
[2019-12-18] MEDS: ENOXAPARIN 40 MG/0.4 ML (LOVENOX) SYR SC SCH ×2 (11:46→23:18)
--- NOTE | 2019-12-18 12:29 | Progress Note - Hospitalist ---
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 She was directly admitted to ICU 2, has been swabbed for COVID, but placed on Meropenem and Vanc for presumed resistant organism for UTI. Currently Pt denies any SOB, I doubt this is COVID. IV fluids were given on schedule. I will review her home medication and will monitor Pt closely. Subjective/Events-last exam Covid swab still pending Lasix 20mg IV given x1 WC 11,000 down from 13,000 and potassium 2.7 so that was given in a supplem entation in the ICU before transferring downstairs Vancomycin was DC Meropenem is maintained Amlodipine of 5mg was declined by the pt Wants her IV changed b/c it is in an awkward place Review of Systems General: Fatigue, Malaise Neurological: Weakness Focused Exam Lactate Level 12/17/19 10:10: Lactic Acid Level 2.09*H 12/17/19 12:20: Lactic Acid Level 1.61 Objective Exam Vital Signs Vital Signs Date Time Temp Pulse Resp B/P (MAP) Pulse Ox O2 Delivery O2 Flow Rate FiO2 12/18/19 20:00 36.1 91 18 146/68 (94) 96 Room Air 12/17/19 14:21 21 Capillary Refill : General Appearance: No Apparent Distress, WD/WN, Obese HEENT: PERRL/EOMI, Normal ENT Inspection, Pharynx Normal, Moist Mucous Me mbranes Neck: Full Range of Motion, Normal Inspection, Non Tender, Supple, Carotid Bruit Respiratory: Chest Non Tender, Lungs Clear, Normal Breath Sounds, No Accessory Muscle Use, No Respiratory Distress Cardiovascular: Regular Rate, Rhythm, No Edema, No Gallop, No JVD, No Murmur, Normal Peripheral Pulses Gastrointestinal: Normal Bowel Sounds, No Organomegaly, No Pulsatile Mass, Non Tender, Soft Back: Normal Inspection, No CVA Tenderness, No Vertebral Tenderness Extremity: Normal Capillary Refill, Normal Inspection, Normal Range of Motion, Non Tender, No Calf Tenderness, No Pedal Edema Neurologic/Psychiatric: Alert, Oriented x3, No Motor/Sensory Deficits, Normal Mood/Affect Skin: Normal Color, Warm/Dry Lymphatic: No Adenopathy Results/Procedures Lab Laboratory Tests 12/18/19 03:28 Patient resulted labs reviewed. Assessment/Plan Assessment and Plan Assess & Plan/Chief Complaint Assessment: Sepsis UTI Rectal-bladder Fistula Plan: Broad spectrum Antibiotics Resistant organism suspected Rivera cultured Monitor closely Arrange for possible rectal surgery consultation in [place] 12/18/19: Give Lasix 20mg IV once Monitor elevated Blood Pressure Await COVID swab Await urine culture Diagnosis/Problems Diagnosis/Problems (1) Sepsis (2) Rectovesical fistula (3) Urinary tract infection Status: Acute Clinical Quality Measures DVT/VTE Risk/Contraindication: Risk Factor Score Per Nursin RFS Level Per Nursing on Admit: 4+=Very High JESSI TOLNETINO DO Dec 18, 2019 12:29
[2019-12-19 03:55] VITALS: BP 193/89
[2019-12-19] MEDS: MEROPENEM 500 MG in WATER (STERILE) FOR INJECTION 10 ML IV SCH ×2 (05:04→10:53)
[2019-12-19 05:46] LABS: BASOPHILS # (AUTO) 0.1 10^3/uL (0.0-0.1); BASOPHILS % (AUTO) 0 % (0-10); EOSINOPHILS # (AUTO) 0.1 10^3/uL (0.0-0.3); EOSINOPHILS % (AUTO) 1 % (0-10); HEMATOCRIT 38 % (35-52); LYMPHOCYTES # (AUTO) 1.8 X 10^3 (1.0-4.0); LYMPHOCYTES % (AUTO) 16 % (12-44); MEAN CORPUSCULAR HEMOGLOBIN 29 PG (25-34); MEAN CORPUSCULAR HGB CONC 35 G/DL (32-36); MEAN CORPUSCULAR VOLUME 84 FL (80-99); MEAN PLATELET VOLUME 10.6 FL (7.4-10.4); MONOCYTES # (AUTO) 0.6 X 10^3 (0.0-1.0); MONOCYTES % (AUTO) 6 % (0-12); NEUTROPHILS # (AUTO) 8.7 X 10^3 (1.8-7.8); NEUTROPHILS % (AUTO) 77 % (42-75); PLATELET COUNT 211 10^3/uL (130-400); RED CELL DISTRIBUTION WIDTH 13.3 % (10.0-14.5); WHITE BLOOD COUNT 11.3 10^3/uL (4.3-11.0)
[2019-12-19 05:57] LABS: CHLORIDE 103 MMOL/L (98-107); POTASSIUM 2.7 MMOL/L (3.6-5.0); SODIUM 136 MMOL/L (135-145)
[2019-12-19 05:58] LABS: CALCIUM 7.9 MG/DL (8.5-10.1)
[2019-12-19 05:59] LABS: GLUCOSE 138 MG/DL (70-105)
[2019-12-19 06:00] LABS: CARBON DIOXIDE 21 MMOL/L (21-32)
[2019-12-19 06:03] LABS: CREATININE SERUM 0.59 MG/DL (0.60-1.30); GFR ESTIMATED > 60; PHOSPHORUS 3.5 MG/DL (2.3-4.7)
[2019-12-19 06:04] LABS: BUN/CREATININE RATIO 14
[2019-12-19 06:05] LABS: MAGNESIUM 2.2 MG/DL (1.6-2.4)
[2019-12-19 07:40] VITALS: BP 186/79
[2019-12-19] MEDS ORDERED: amLODIPine 5 MG (NORVASC) TAB PO SCH (09:00)
[2019-12-19] MEDS: polyethylene glycoL POWDER 17 GM (MIRALAX) PACK PO SCH (09:11)
[2019-12-19] MEDS: SENNA W/DOCUSATE (SENOKOT S) TABLET PO SCH (09:12)
[2019-12-19] MEDS ORDERED: KCL 20 MEQ TAB (K-DUR) PO ONE (10:45)
[2019-12-19] MEDS: ENOXAPARIN 40 MG/0.4 ML (LOVENOX) SYR SC SCH (10:53)
[2019-12-19] MEDS ORDERED: NITR-68 PO (11:12)
--- NOTE | 2019-12-19 11:12 | Discharge Summary ---
Discharge Summary Hospital Course Was the Problem List Reviewed?: Yes Problems/Dx: (1) Sepsis (2) Rectovesical fistula (3) Urinary tract infection Status: Acute Hospital Course Date of Admission: Dec 17, 2019 at 09:33 Admission Diagnosis : Family Physician/Provider: Rubi Thompson Date of Discharge: 12/19/19 Discharge Diagnosis: Assess & Plan/Chief Complaint Assessment: Sepsis UTI Rectal-bladder Fistula Plan: Broad spectrum Antibiotics Resistant organism suspected Rivera cultured Monitor closely Arrange for possible rectal surgery consultation in [place] 12/18/19: Give Lasix 20mg IV once Monitor elevated Blood Pressure Await COVID swab Await urine culture Hospital Course: Patient admitted for sepsis COVID swab taken and negative results. Patient was given IVF and IV abx for UTI from rectalvesicular fistula. UCx NGTD but will but DC with Macrobid for additional coverage until she is able to repair the fistula. Labs and Pending Lab Test: Laboratory Tests 12/19/19 05:37: White Blood Count 11.3H, Red Blood Count 4.48, Hemoglobin 13.0, Hematocrit 38, Mean Corpuscular Volume 84, Mean Corpuscular Hemoglobin 29, Mean Corpuscular Hemoglobin Concent 35, Red Cell Distribution Width 13.3, Platelet Count 211, Mean Platelet Volume 10.6H, Neutrophils (%) (Auto) 77H, Lymphocytes (%) (Auto) 16, Monocytes (%) (Auto) 6, Eosinophils (%) (Auto) 1, Basophils (%) (Auto) 0, Neutrophils # (Auto) 8.7H, Lymphocytes # (Auto) 1.8, Monocytes # (Auto) 0.6, Eosinophils # (Auto) 0.1, Basophils # (Auto) 0.1, Sodium Level 136, Potassium Level 2.7L, Chloride Level 103, Carbon Dioxide Level 21, Anion Gap 12, Blood Urea Nitrogen 8, Creatinine 0.59L, Estimat Glomerular Filtration Rate > 60, B UN/Creatinine Ratio 14, Glucose Level 138H, Calcium Level 7.9L, Phosphorus Level 3.5, Magnesium Level 2.2 Microbiology 12/17/19 Blood Culture - Preliminary, Resulted No growth 12/17/19 Urine Culture - Final, Complete NO GROWTH 12/17/19 Influenza Types A,B Antigen (JUAN) - Final, Complete Home Meds Active Reported Aleve (Naproxen Sodium) 220 Mg Capsule 220 Mg PO Q8H PRN Assessment/Pt Instructions [facility] in one week Discharge Planning: <30 minutes discharge planning Discharge Instructions Discharge Diet: No Restrictions Pneumonia Vaccine Order Indica: Yes Discharge Physical Examination Vital Signs Vital Signs Date Time Temp Pulse Resp B/P (MAP) Pulse Ox O2 Delivery O2 Flow Rate FiO2 12/19/19 08:20 Room Air 12/19/19 07:40 36.6 74 15 186/79 (114) 95 12/17/19 14:21 21 General Appearance: No Apparent Distress, WD/WN, Chronically ill Respiratory: Normal Breath Sounds Neurologic/Psychiatric: Alert, Oriented x3 Allergies: Uncoded Allergies: oranges (Allergy, Unknown, 06/17/14) wasps (Allergy, Unknown, 06/17/14) Discharge Summary Date of Admission Dec 17, 2019 at 09:33 Date of Discharge Discharge Date: Dec 19, 2019 Admission Diagnosis Assessment: Sepsis UTI Rectal-bladder Fistula Plan: Broad spectrum Antibiotics Resistant organism suspected Rivera cultured Monitor closely Arrange for possible rectal surgery consultation in [place] Discharge Diagnosis Assessment: Sepsis UTI Rectal-bladder Fistula Plan: Broad spectrum Antibiotics Resistant organism suspected Rivera cultured Monitor closely Arrange for possible rectal surgery consultation in [place] 12/18/19: Give Lasix 20mg IV once Monitor elevated Blood Pressure Await COVID swab Await urine culture (1) Sepsis (2) Rectovesical fistula (3) Urinary tract infection Status: Acute Clinical Quality Measures DVT/VTE Risk/Contraindication: Risk Factor Score Per Nursin RFS Level Per Nursing on Admit: 4+=Very High JESSI TOLENTINO DO Dec 19, 2019 11:12
[2019-12-19 11:27] VITALS: BP 193/84
[2019-12-19] MEDS ORDERED: POTA10TA36 PO (12:24)
[2019-12-19 13:25] VITALS: BP 186/79
--- NOTE | 2019-12-19 13:36 | NUR ---
RD ASSESSMENT PMHx: HTN; DM PT INTERACTION: Pt was awake and pleasant during nutrition assessment. Pt states current appetite is okay. Note avg PO intake 50% x2d, per chart review. Pt states following a regular diet at home, and has no issues with chewing/swallowing food. Pt states no recent issues with nausea, vomiting, constipation, or diarrhea. Note last BM was 12/17 and pt currently on bowel regimen of senna BID; and miralax BID, per chart review. Pt states recent 10# wt loss x2w. Note unable to determine recent wt hx, per chart review. When asked about current DM management, pt states "let's go with sure, good control." Note unable to determine recent HbA1c, per chart review. ABNORMAL NUTRITION-RELATED LAB VALUES LOW: K 2.7; cr 0.59; Ca 7.9 HIGH: glu 138 Est. kcal needs: 1700 kcal | 15 kcal/kg Est. Pro needs: 91 g Pro | 0.8 g Pro/kg PES STATEMENT: Inadequate oral intake (NI-2.1) related to loss of appetite as evidenced by pt interview | avg PO intake 50% x2d INTERVENTION: Continue with current diet order of regular diet. Pt may benefit from consistent CHO restriction if blood glucose levels become elevated. Pt may benefit from nutrition supplementation if PO intake declines. Offered diet education on DM management, but pt declined at this time. Will attempt to offer again prior to discharge. Will continue to follow and reassess as pt needs, intake, and status change. MONITOR/EVALUATE: PO Intake; Plan of Care; Hydration Status; Weight Status; Lab Values Susy Arambula, MS, RD, LD
== END 2019-12-19 13:25 | disposition home or self-care (01) | DRG 872 ==
LOC: ICU 09:33 → 4TH 12-18 10:07
PROVIDERS: ADMIT Internal Medicine; ATTEND Internal Medicine
DX: A41.9 Sepsis, unspecified organism (principal); N39.0 Urinary tract infection, site not specified; N32.1 Vesicointestinal fistula; E87.2 Acidosis; Z20.828 Contact with and (suspected) exposure to other viral communicable diseases; E87.6 Hypokalemia
CPT/HCPCS: 36415; 71045; 80048; 80053; 81000; 83605; 83735; 84100; 85025; 85610; 85730; 87040; 87081; 87088; 87635; 87804